=== PATIENT | male | born 1950 | race Caucasian/White ===

== ENCOUNTER → 2017-12-01 16:18 | Outpatient (CLI) | payer MEDICARE, OTHER, SELFPAY ==
--- NOTE | 2017-12-01 | DI.MRI.S_ITS ---
PROCEDURE: MR ANKLE LT WO CON INDICATIONS: STRAIN OF MUSCLE AND TENDON LOWER LEFT LEG TECHNIQUE: Noncontrast sagittal T1 spin echo and T2 fast spin echo with fat saturation, axial proton density fast spin echo and T2 fast spin echo with fat saturation, coronal T1 spin echo and T2 fast spin echo with fat saturation through the ankle/hindfoot. COMPARISON: None. FINDINGS: Image quality: Excellent. Bones and joints: No bone marrow contusions or fractures. No hindfoot coalitions. No osteochondral injuries of the talar dome. No pathologic joint effusions. There is anterior circumferential subcutaneous edema Medial structures: The posterior tibialis, flexor digitorum longus, and flexor hallucis longus tendons are intact. The posterior tibial neurovascular bundle appears normal within the tarsal tunnel, without extrinsic mass effect. The deep layer (anterior and posterior tibiotalar ligaments) and superficial layer (tibionavicular, tibiospring, and tibiocalcaneal ligaments) of the deltoid ligament appear normal. The spring ligament components (superomedial calcaneonavicular, medioplantar oblique calcaneonavicular, and inferoplantar longitudinal ligaments) are intact. Lateral structures: The anterior talofibular, calcaneofibular, and posterior talofibular ligaments appear intact. More superiorly, the anterior and posterior tibiofibular ligaments appear intact, as is the intermalleolar ligament. The tibiofibular syndesmosis is normal in width at 2 mm or less. The peroneus longus and brevis tendons demonstrate normal location and morphology. There is minimal peroneus longus and brevis tenosynovitis of unknown clinical significance. Adjacent bony peroneal tubercle and retrotrochlear prominence are normal in size. The sinus tarsi demonstrates normal fatty signal, without edema, fibrosis, or cyst formation. Visualized sinus tarsi components (cervical ligament, interosseous talocalcaneal ligament, roots of the inferior extensor retinaculum) appear normal. The calcaneonavicular and calcaneocuboid components of the bifurcate ligament appear intact. The dorsal calcaneocuboid ligament appears intact. Anterior structures: The tibialis anterior is markedly thickened and demonstrates intrasubstance signal change in keeping with severe tendinopathy. Possible longitudinal split tear seen on image 26 series 6 near the insertion. This is in the area marked by the fiducial placed on the anterior/dorsal skin surface The extensor hallucis longus, and extensor digitorum longus tendons appear intact. The dorsal talonavicular ligament appears intact. Posterior and plantar structures: Achilles tendon is intact. Medial and lateral bands of the plantar fascia are of normal thickness. IMPRESSION: Severe tibialis anterior tendinopathy and longitudinal split tear. Circumferential anterior subcutaneous soft tissue swelling is probably reactive. Please correlate clinically. Dictated by: Raheem Marie M.D. on 12/01/2017 at 17:07 Approved by: Raheem Marie M.D. on 12/01/2017 at 17:20
== END ==
PROVIDERS: Family Provider Internal Medicine; PCP Internal Medicine; Visit Provider Podiatrist
DX: S96.812A Strain of other specified muscles and tendons at ankle and foot level, left foot, initial encounter (principal)
CPT/HCPCS: 73721

== ENCOUNTER 2018-10-24 16:21 | Emergency (ER) | payer MEDICARE, OTHER, SELFPAY ==
[2018-10-24 16:25] VITALS: BP 170/80; PULSE 64; RESP 19; TEMP 36.4; O2SAT 96
--- NOTE | 2018-10-24 17:25 | DI.RAD.S_ITS ---
PROCEDURE: XR ELBOW LT MIN 3V INDICATIONS: foreign body, possible TECHNIQUE: 3 views of the elbow were acquired. COMPARISON: None. FINDINGS: Bones: No fractures or dislocations. No suspicious bony lesions. Soft tissues: No elbow joint effusion. No suspicious soft tissue calcifications. Within the soft tissues at the radial aspect of the elbow area, without impingement on the adjacent osseous structures, there is a metallic foreign body appears to represent most likely a portion of a metallic staple, which correlates with the clinical history provided to the technologist, from 4 days ago. IMPRESSION: Presumed staple metallic fragment at the radial aspect of the elbow region without osseous injury associated. No effusion suspected. Dictated by: Cesar Dasilva M.D. on 10/24/2018 at 17:59 Approved by: Cesar Dasilva M.D. on 10/24/2018 at 18:01
[2018-10-24] MEDS: DIPHTH,PERTUSS(ACELL),TET VAC 0.5 ML SYRINGE IM (18:27)
[2018-10-24 18:32] VITALS: PULSE 61; RESP 16; O2SAT 99
--- NOTE | 2018-10-26 19:22 | ED.UPPEXIN ---
HPI - Extremity Injury (Upper) General Chief Complaint: Extremity Injury, Upper Stated Complaint: staple in left elbow Time Seen by Provider: 10/24/18 16:58 Source: patient Mode of arrival: ambulatory Limitations: no limitations History of Present Illness HPI narrative: Patient presents emergency department complaining of a wound on the radial aspect of his proximal left forearm, which he believes may be the result of an imbedded carpet stable. Patient states that he was pulling up carpet and jenn, and that he sustained a lot of surface injuries and ?pokes and scratches?. Patient states he felt something stabbed the back of his arm, but did not think too much of it. He states that in the several days since, he has felt as though there is something poking under his skin. Patient has had a wound that is scabbed over, but has been draining a small amount of bloody fluid. Patient denies any redness or streaking. No fevers or chills. No body aches. Patient was not injured in any other way, and has no other complaints at this time. He has full range of motion of his elbow. Related Data Home Medications Medication Instructions Recorded Confirmed carbidopa 25 mg-levodopa 100 mg 1 tab PO TID 10/24/18 10/24/18 tablet Previous Rx's Medication Instructions Recorded aspirin 81 mg PO BID #60 03/26/16 lisinopril 40 mg PO QDAY #90 tab 11/14/17 sertraline 50 mg tablet 50 mg PO QDAY #90 tab 07/30/18 Allergies Allergy/AdvReac Type Severity Reaction Status Date / Time cephalexin Allergy Mild rash, no Unverified 10/24/18 16:06 reaction to IV cefazolin in 2014 valacyclovir Allergy Mild rash Unverified 10/24/18 16:06 Review of Systems Constitutional Denies chills, Denies fever(s), Denies lethargy and Denies weakness Eyes Denies change in vision, Denies eye discharge, Denies irritation and Denies loss of vision ENT Ears, Nose, Mouth, and Throat: Denies change in voice, Denies neck pain and Denies sore throat Cardiovascular Denies chest pain, Denies irregular heart rhythm, Denies lightheadedness, Denies palpitations, Denies dyspnea, Denies dyspnea on exertion and Denies orthopnea Respiratory Denies cough, Denies dyspnea, Denies dyspnea on exertion and Denies wheezing Gastrointestinal Gastrointestinal: Denies abdominal pain, Denies change in bowel habits, Denies diarrhea, Denies nausea and Denies vomiting Genitourinary Denies hematuria, Denies flank pain, Denies urinary incontinence and Denies urinary urgency Musculoskeletal Denies neck pain Integumentary/Breasts Denies pruritus, Denies erythema and Denies rash Comments: Left forearm wound Neurologic Denies confusion, Denies loss of vision and Denies weakness Psychiatric Denies anxiety, Denies confusion, Denies depression, Denies homicidal ideation and Denies suicidal ideation Endocrine Denies palpitations Hematologic/Lymphatic Denies easy bruising Allergic/Immunologic Denies wheezing [facility] History Anxiety (Chronic) Social History Smoking Status: Never smoker Social History Smoking Status: Never smoker Exam Initial Vital Signs Initial Vital Signs: Vital Signs Temperature 97.6 F 10/24/18 16:25 Pulse Rate 64 10/24/18 16:25 Respiratory Rate 19 10/24/18 16:25 Blood Pressure 170/80 H 10/24/18 16:25 Pulse Oximetry 96 10/24/18 16:25 Const General: cooperative and well developed Nutritional Appearance: well nourished Orientation: alert, awake, oriented x3 and not confused [facility] Head: normocephalic and atraumatic Ears: external ears normal Nose: external nose normal and No nasal discharge Face and sinus: face symmetric and No dry mucous membranes Mouth: oral mucosae normal and moist mucous membranes Teeth and gingiva: dentition normal Eyes General: appearance normal, both eyes and all related structures Eyelids: eyelids normal Conjunctivae: conjunctivae normal Sclera: sclerae normal Pupils: PERRL EOM: EOM intact bilaterally Neck Neck: normal visual inspection, trachea midline, No lymphadenopathy, No midline deformity and No JVD Lymphatic: No lymphedema Chest Chest: normal inspection of the chest Resp Effort & Inspection: normal respiratory effort, able to speak in complete sentences, no respiratory distress and no use of accessory muscles Cardio Rate: regular rate Rhythm: regular rhythm Pulses: normal peripheral pulses Back/Spine/Pelvis Back: No CVA tenderness Cervical Spine: cervical ROM normal and No pain with cervical ROM Thoracic/Lumbar Spine: thoracic and lumbar spine normal to inspection Skin General: no rashes or lesions noted, No jaundice and No petechiae Other: Patient has an approximately 1 cm length, linear abrasion on the dorsal aspect of his proximal left forearm, on the radial aspect, approximately 4 cm distal to the elbow. No induration or fluctuance is noted. Minimal, thickened sanguinous fluid is expressible at 1 and the wound, which also coincides with a vague feeling of foreign body beneath the distal end of the wound. No foreign body is noted to be protruding through the skin or the wound. There is no erythema of the skin. No streaking. No swelling. Neuro General: alert, oriented x3, gait normal and no focal motor deficits Speech: speech normal Extrem General: full ROM Other: Patient has full range of motion of his left elbow without pain. Psych Appearance: well kempt Mental Status: mental status grossly normal Attitude: cooperative Thought Content: normal and suicidality Judgment: judgment good Procedures Foreign Body OTHER Time Out Performed: no Site: left Description of foreign body: other (Carpet staple) Sedation/Analgesia: other (2% xylocaine injected locally.) Technique: removal with forceps (Tip of staple was found to be just under the surface. Foreign body removed coincided with x-ray findings.) and incision made to facilitate removal (1 cm incision over the original wound with 1 cm cross incision over area of palpable foreign body.) Confirmed by:: direct visualization Complications: none Post-procedure exam: awake, alert Neurovascular: normal distal pulse, normal capillary fill, distal light touch sensation intact and distal motor function normal Course Course Narrative: Staple was removed from the patient's arm after x-ray series demonstrated its presence, as noted under the procedure section. Patient's tetanus was updated in the emergency department. The procedure was done sterilely, we have discussed the signs of infection that patient should watch for. We have discussed the usual indications for return, as well as home management of the patient's wound. MDM - Extremity Injury (Upper) Medical Records Attestation: I reviewed the patient's medical records. Imaging Data Left elbow x-ray: Radiologist's impression: PROCEDURE: XR ELBOW LT MIN 3V INDICATIONS: foreign body, possible TECHNIQUE: 3 views of the elbow were acquired. COMPARISON: None. FINDINGS: Bones: No fractures or dislocations. No suspicious bony lesions. Soft tissues: No elbow joint effusion. No suspicious soft tissue calcifications. Within the soft tissues at the radial aspect of the elbow area, without impingement on the adjacent osseous structures, there is a metallic foreign body appears to represent most likely a portion of a metallic staple, which correlates with the clinical history provided to the technologist, from 4 days ago. IMPRESSION: Presumed staple metallic fragment at the radial aspect of the elbow region without osseous injury associated. No effusion suspected. Dictated by: Cesar Dasilva M.D. on 10/24/2018 at 17:59 Approved by: Cesar Dasilva M.D. on 10/24/2018 at 18:01 Discharge Plan Departure Patient Disposition: Home Clinical Impression: Foreign body (FB) in soft tissue Discharge Date/Time: 10/24/18 18:30 Interventions: ED Discharge Assessment Last Done: 10/24/18 18:32 Instructions: DI for Removal of Foreign Body From Skin Activity Restrictions/Additional Instructions: The metallic staple has been removed from her forearm. The small incision has been repaired with 2 sutures, which will need to be removed in approximately 5 days. Please keep the wound clean and dry until then, and do not rub, scrub, or immerse the wound until sutures are removed. Your tetanus has been updated today. Prescriptions: No Action aspirin 81 MG tablet,delayed release (DR/EC) 81 mg PO BID Qty: 60 RF: 0 lisinopril 40 mg tablet 40 mg PO QDAY Qty: 90 RF: 3 sertraline 50 mg tablet 50 mg PO QDAY Qty: 90 RF: 3 carbidopa-levodopa 25-100 mg tablet 1 tab PO TID RF: 0 Referrals: Derek Ram MD [Primary Care Provider] -
== END 2018-10-24 18:30 | disposition home or self-care (01) ==
PROVIDERS: Emergency Provider Emergency Medicine; Family Provider Internal Medicine; PCP Internal Medicine
DX: M79.5 Residual foreign body in soft tissue (principal)
CPT/HCPCS: 10120; 73080; 90715; 99282; 99283

== ENCOUNTER → 2019-06-24 10:40 | Outpatient (CLI) | payer MEDICARE, OTHER, SELFPAY ==
[2019-06-24 11:11] LABS: Add Manual Diff / Slide Review NO; Basophils Absolute Auto 100 /uL (0-100); Eosinophils Absolute Auto 200 /uL (0-450); Hematocrit 42.7 % (41-53); Hemoglobin 14.5 g/dL (13.5-17.5); Lymphocytes Absolute Auto 1600 /uL (1100-4500); Lymphocytes Percent Auto 27.9 % (25-40); Mean Corpuscular Hemoglobin 30.2 PG (26-34); Mean Corpuscular Volume 89.1 fL (80-100); Monocytes Absolute Auto 400 /uL (0-900); Monocytes Percent Auto 6.6 % (3-14); Neutrophils Absolute Auto 3400 /uL (1500-7000); Neutrophils Percent Auto 60.5 % (50-75); Platelet Count 134 X10^3/uL (150-400); Red Cell Distribution Width 13.7 % (11.6-14.8); White Blood Cell Count 5.6 X10^3/uL (4.5-11.0)
[2019-06-24 11:40] LABS: Alanine Aminotransferase 7 IU/L (<50); Albumin 4.6 g/dL (3.5-5.0); Albumin Globulin Ratio 1.5 (1.0-2.8); Alkaline Phosphatase 62 U/L (38-126); Aspartate Aminotransferase 23 IU/L (17-59); Bilirubin Total 0.7 mg/dL (0.2-1.3); Blood Urea Nitrogen 20 mg/dL (9-20); Calcium 9.9 mg/dL (8.4-10.2); Carbon Dioxide 28 mmol/L (22-32); Chloride 104 mmol/L (98-107); Cholesterol 193 mg/dL (140-199); Estimated Glomerular Filt Rate > 60.0 mL/min (>60); Glucose 99 mg/dL (80-110); HDL Cholesterol 58 mg/dL (40-60); HEMOLYSIS < 15 (0-50); LDL Cholesterol Calculated 125 mg/dL (<100); Potassium 4.6 mmol/L (3.4-5.1); Sodium 141 mmol/L (137-145); Total Protein 7.6 g/dL (6.3-8.2); Triglycerides 49 mg/dL (35-150)
[2019-06-24 12:10] LABS: Prostate Specific Antigen Scrn 0.808 ng/mL (0.1-4.0)
== END ==
PROVIDERS: Family Provider Internal Medicine; PCP Internal Medicine; Referring Provider Internal Medicine; Visit Provider Internal Medicine
DX: Z12.5 Encounter for screening for malignant neoplasm of prostate (principal); I10 Essential (primary) hypertension; N40.0 Benign prostatic hyperplasia without lower urinary tract symptoms
CPT/HCPCS: 36415; 80053; 80061; 85025; G0103

== ENCOUNTER → 2020-06-11 09:31 | Outpatient (CLI) | payer MEDICARE, OTHER, SELFPAY ==
[2020-06-11 10:35] LABS: BUN Creatinine Ratio 21.8 (6-22); Blood Urea Nitrogen 22 mg/dL (9-20); Calcium 9.2 mg/dL (8.4-10.2); Carbon Dioxide 30 mmol/L (22-32); Chloride 106 mmol/L (98-107); Estimated Glomerular Filt Rate > 60.0 mL/min (>60); Glucose 104 mg/dL (80-110); HEMOLYSIS < 15 (0-50); Potassium 4.4 mmol/L (3.4-5.1); Sodium 140 mmol/L (137-145)
== END ==
PROVIDERS: Family Provider Internal Medicine; PCP Internal Medicine; Referring Provider Specialist; Visit Provider Specialist
DX: N28.9 Disorder of kidney and ureter, unspecified (principal)
CPT/HCPCS: 36415; 80048

== ENCOUNTER → 2020-06-16 10:05 | Outpatient (CLI) | payer MEDICARE, OTHER, SELFPAY ==
--- NOTE | 2020-06-16 10:07 | DI.CT.S_ITS ---
PROCEDURE: CT ABDOMEN PELVIS WO/W CON INDICATIONS: Hematuria TECHNIQUE: Optional 5 mm thick noncontrast images acquired from the diaphragm to the symphysis pubis. After the administration of intravenous contrast, 5 mm thick images acquired from the diaphragm to the symphysis pubis after a 10-minute delay. 2 mm thick coronal and sagittal reformats were then performed of the kidneys and ureters. For radiation dose reduction, the following was used: automated exposure control, adjustment of mA and/or kV according to patient size. COMPARISON: [facility], CT, IVP (ABD & PEL WWO CONTRAST), 02/05/2016, 11:06. FINDINGS: Image quality: Excellent. Lung bases: Lung bases are clear. Heart size is normal. There is a small hiatal hernia. Urinary system: Both kidneys are normal in size, without hydronephrosis or nephrolithiasis on pre-contrast images. No perinephric fat stranding. There is normal bilateral renal enhancement. Renal calyces appear normal in morphology when filled with contrast. Opacified portions of both ureters demonstrate normal caliber. Bladder wall is mild diffusely thickened. There is irregularity in the bladder base. No calcified bladder stones. Other solid organs: Liver is normal in size and enhancement. Gallbladder contain small gallstones. Biliary system is non dilated. There is fatty infiltration of pancreas. Spleen is normal in size and enhancement. No adrenal nodules. Peritoneum and bowel: Bowel loops demonstrate normal wall thickness and caliber. There are colonic diverticula in sigmoid colon. No CT findings to suggest diverticulitis. No free fluid or air. Nodes and vessels: A mildly enlarged left para-aortic lymph node measures 1.2 cm, unchanged since 02/05/2016. No mesenteric adenopathy by size criteria. Aorta and inferior vena cava are normal in size. Abdominal wall: Small fat containing umbilical hernia is noted. Pelvis: No pathologic free pelvic fluid. No inguinal adenopathy. Small fat containing inguinal hernias are noted bilaterally. Bones: No suspicious bony lesions. No vertebral body compression fractures. Severe degenerative disc and facet disease in lumbar spine. Right hip arthroplasty. IMPRESSION: 1. Mild diffuse thickening of urinary bladder, suggesting cystitis. There is irregularity in bladder base. Recommend correlation with findings on cystoscopy. 2. Mild retraperitoneal lymph adenopathy, stable since 02/05/2016. 3. Cholelithiasis. 4. Diverticulosis without acute diverticulitis. 5. Fatty infiltration of pancreas. Please correlate with pancreatic enzymes. Dictated by: Johnna Valentin M.D. on 06/16/2020 at 11:20 Approved by: Johnna Valentin M.D. on 06/16/2020 at 14:50
== END ==
PROVIDERS: Family Provider Internal Medicine; PCP Internal Medicine; Referring Provider Specialist; Visit Provider Specialist
DX: R31.9 Hematuria, unspecified (principal); K80.20 Calculus of gallbladder without cholecystitis without obstruction; K57.90 Diverticulosis of intestine, part unspecified, without perforation or abscess without bleeding; R59.0 Localized enlarged lymph nodes; K42.9 Umbilical hernia without obstruction or gangrene
CPT/HCPCS: 74178; Q9967

== ENCOUNTER → 2020-08-11 13:58 | Outpatient (CLI) | payer MEDICARE, OTHER, SELFPAY ==
[2020-08-11] MEDS: COVID-19 VACC #1, MRNA(MOD) 100 MCG/0.5 ML VIAL IM (14:04)
== END ==
PROVIDERS: Family Provider Internal Medicine; PCP Internal Medicine; Visit Provider Internal Medicine
DX: Z23 Encounter for immunization (principal)
CPT/HCPCS: 0011A; 91301

== ENCOUNTER → 2020-09-09 14:29 | Outpatient (CLI) | payer MEDICARE, OTHER, SELFPAY ==
[2020-09-09] MEDS: COVID-19 VACC #2, MRNA(MOD) 100 MCG/0.5 ML VIAL IM (14:38)
== END ==
PROVIDERS: Family Provider Internal Medicine; PCP Internal Medicine; Visit Provider Internal Medicine
DX: Z23 Encounter for immunization (principal)
CPT/HCPCS: 0012A; 91301

== ENCOUNTER → 2021-01-14 10:00 | Outpatient (CLI) | payer MEDICARE, OTHER, SELFPAY ==
[2021-01-14 10:34] LABS: Add Manual Diff / Slide Review NO; Basophils Absolute Auto 0 /uL (0-100); Basophils Percent Auto 0.7 % (0-2); Eosinophils Absolute Auto 200 /uL (0-450); Eosinophils Percent Auto 2.9 % (2-4); Hematocrit 42.8 % (41-53); Hemoglobin 14.1 g/dL (13.5-17.5); Lymphocytes Absolute Auto 1200 /uL (1100-4500); Mean Corpuscular HGB Conc 32.9 % (30-36); Monocytes Absolute Auto 400 /uL (0-900); Monocytes Percent Auto 6.6 % (3-14); Neutrophils Absolute Auto 3700 /uL (1500-7000); Neutrophils Percent Auto 67.8 % (50-75); Platelet Count 132 X10^3/uL (150-400); Red Cell Distribution Width 14.1 % (11.6-14.8); White Blood Cell Count 5.5 X10^3/uL (4.5-11.0)
[2021-01-14 10:47] LABS: Alanine Aminotransferase 18 IU/L (<50); Albumin 4.3 g/dL (3.5-5.0); Albumin Globulin Ratio 1.3 (1.0-2.8); Alkaline Phosphatase 61 U/L (38-126); Aspartate Aminotransferase 30 IU/L (17-59); Bilirubin Total 0.7 mg/dL (0.2-1.3); Blood Urea Nitrogen 20 mg/dL (9-20); Calcium 9.6 mg/dL (8.4-10.2); Carbon Dioxide 27 mmol/L (22-32); Chloride 105 mmol/L (98-107); Cholesterol 177 mg/dL (140-199); Estimated Glomerular Filt Rate > 60.0 mL/min (>60); Globulin 3.2 g/dL (1.7-4.1); Glucose 109 mg/dL (80-110); HDL Cholesterol 58 mg/dL (40-60); HEMOLYSIS < 15 (0-50); LDL Cholesterol Calculated 104 mg/dL (<100); Potassium 4.4 mmol/L (3.4-5.1); Sodium 139 mmol/L (137-145); Total Protein 7.5 g/dL (6.3-8.2); Triglycerides 76 mg/dL (35-150)
[2021-01-14 11:18] LABS: Prostate Specific Antigen Scrn 0.721 ng/mL (0.1-4.0)
[2021-01-14 11:59] LABS: TSH w/ Reflex to FT4 3.75 uIU/mL (0.47-4.68)
== END ==
PROVIDERS: Family Provider Internal Medicine; PCP Internal Medicine; Referring Provider Internal Medicine; Visit Provider Internal Medicine
DX: D69.6 Thrombocytopenia, unspecified (principal); G20 Parkinson's disease; I10 Essential (primary) hypertension; Z12.5 Encounter for screening for malignant neoplasm of prostate; G25.81 Restless legs syndrome; Z13.220 Encounter for screening for lipoid disorders
CPT/HCPCS: 36415; 80053; 80061; 84443; 85025; G0103

== ENCOUNTER 2021-04-01 16:17 | Observation (INO) | payer MEDICARE, OTHER, SELFPAY ==
[2021-04-01] VITALS (7 sets, daily range): BP systolic 131–200; BP diastolic 59–87; PULSE 62–70; RESP 14–18; TEMP 36.3–36.8; O2SAT 96–99; BMI 31.2
--- NOTE | 2021-04-01 17:11 | DI.RAD.S_ITS ---
PROCEDURE: XR HAND LT MIN 3V INDICATIONS: Lacerations TECHNIQUE: 3 views of the hand(s) acquired. COMPARISON: None. FINDINGS: Bones: Fracture of the distal phalanx of the thumb. Chronic deformity of the ring finger, with severe DIP joint degeneration. Scattered degenerative subchondral sclerosis and spurring. Soft tissues: Associated soft tissue swelling. Laceration of the middle finger also noted. IMPRESSION: Fracture of the distal phalanx of the thumb. Dictated by: Raheem Marie M.D. on 04/01/2021 at 17:53 Approved by: Raheem Marie M.D. on 04/01/2021 at 17:55
--- NOTE | 2021-04-01 17:11 | ED_ITS ---
HPI - Extremity Injury (Upper) <Kwadwo Martinez PA-C - Last Filed: 04/02/21 19:42> General Chief Complaint: Extremity Injury, Upper Stated Complaint: cut left thumb on tablesaw Time Seen by Provider: 04/01/21 16:51 Source: patient Mode of arrival: Ambulatory Limitations: no limitations History of Present Illness HPI narrative: Patient is a 70-year-old male presenting to the emergency depar tment today for an evaluation a left hand injury that occurred 1-1/2 hours prior to arriving to the ED. Patient states that he was making cutting boards using his table saw at home when the injury occurred. He sustained lacerations to his left thumb and left middle fingers. He denies additional lacerations or injuries. Patient denies fever, chills, chest pain, shortness of breath, abdominal pain, nausea, vomiting, diarrhea. No other concerns voiced at this time. Related Data Home Medications Medication Instructions Recorded Confirmed carbidopa 25 mg-levodopa 100 mg 1 tab PO TID 10/24/18 04/02/21 tablet aspirin 81 mg tablet,delayed 81 mg PO DAILY tab 06/10/19 04/02/21 release ropinirole 0.5 mg tablet 1 mg PO TID 05/21/20 04/02/21 Previous Rx's Medication Instructions Recorded lisinopril 40 mg tablet 40 mg PO DAILY #90 tab 12/15/20 sertraline 50 mg tablet 50 mg PO QDAY #90 tab 12/15/20 bacitracin 500 unit/gram topical 1 applic TOPICAL DAILY #30 g 04/02/21 ointment cephalexin 500 mg capsule 500 mg PO QID 7 Days #28 cap 04/02/21 docusate sodium 100 mg capsule 100 mg PO BID PRN #30 cap 04/02/21 oxycodone 5 mg tablet 5 mg PO Q4-6H PRN #20 tab 04/02/21 Allergies Allergy/AdvReac Type Severity Reaction Status Date / Time cephalexin Allergy Mild rash, no Verified 12/15/20 10:21 reaction to IV cefazolin in 2014 valacyclovir Allergy Mild rash Verified 12/15/20 10:21 Review of Systems <Kwadwo Martinez PA-C - Last Filed: 04/02/21 19:42> Constitutional Constitutional: Denies chills, Denies fever(s), Denies frequent falls, Denies lethargy and Denies weakness ENT Ears, Nose, Mouth, and Throat: Denies dizziness Cardiovascular Cardiovascular: Denies chest pain, Denies irregular heart rhythm, Denies lightheadedness, Denies palpitations, Denies dyspnea, Denies dyspnea on exertion and Denies orthopnea Respiratory Respiratory: Denies cough, Denies dyspnea, Denies dyspnea on exertion and Denies wheezing Gastrointestinal Gastrointestinal: Denies abdominal pain, Denies change in bowel habits, Denies diarrhea, Denies nausea and Denies vomiting Musculoskeletal Musculoskeletal: Denies numbness Integumentary/Breasts Skin/Breast: Denies pruritus, Denies erythema, Denies rash and Reports wounds (Lacerations to left thumb and left middle finger) Neurologic Neurologic: Denies behavioral changes, Denies confusion, Denies dizziness, Denies frequent falls, Denies numbness and Denies weakness Psychiatric Psychiatric: Denies behavioral changes and Denies confusion Endocrine Endocrine: Denies palpitations Allergic/Immunologic Allergic/Immunologic: Denies wheezing Patient History <Kwadwo Martinez PA-C - Last Filed: 04/02/21 19:42> Medical History Anxiety (01/02/12) Arthritis BPH w urinary obs/LUTS Essential hypertension (09/25/15) Essential tremor (03/21/14) Hematuria Neurological disease Osteoarthritis of left knee Parkinsons disease Restless leg syndrome Sleep apnea with use of continuous positive airway pressure (CPAP) Thrombocytopenia (02/01/16) Surgical History History of hip replacement History of knee replacement Family History Father Cancer BPH (benign prostatic hyperplasia) Mother Hypertension Social History marital status: number of children: 4 household members: spouse occupational status: previously employed Smoking Status: Never smoker alcohol intake: current caffeine: Yes Smoking Status: Never smoker alcohol intake frequency: a few times a week Substance Use Type: does not use Exam <Kwadwo Martinez PA-C - Last Filed: 04/02/21 19:42> Narrative Exam Narrative: GENERAL: 70 year old patient appears stated age. Well-developed patient, in mild distress. HEAD: Atraumatic. Normocephalic. EYES: Pupils equal round and reactive. Extraocular motions intact. No scleral icterus. No injection or drainage. ENT: Nose without bleeding, purulent drainage. Throat without erythema, tonsillar hypertrophy or exudate. Airway patent. NECK: Trachea midline. Non tender CARDIOVASCULAR: Regular rate and rhythm without murmurs, gallops, or rubs. RESPIRATORY: Clear to auscultation. Breath sounds equal bilaterally. No wheezes, rales, or rhonchi. GASTROINTESTINAL: Abdomen soft, non-tender, nondistended. EXTREMITIES: No edema or joint tenderness. BACK: Nontender without deformity or crepitance. No flank tenderness. NEURO: AOx3. SKIN: No rash or erythema of visible areas. Laceration over the left thumb and left middle finger. Initial Vital Signs Initial Vital Signs: Vital Signs Temperature 97.9 F 04/01/21 16:30 Pulse Rate 70 04/01/21 16:30 Respiratory Rate 18 04/01/21 16:30 Blood Pressure 200/87 H 04/01/21 16:30 Pulse Oximetry 99 04/01/21 16:30 <Ernesto Jewell DO - Last Filed: 04/05/21 03:55> Initial Vital Signs Initial Vital Signs: Vital Signs Temperature 97.9 F 04/01/21 16:30 Pulse Rate 70 04/01/21 16:30 Respiratory Rate 18 04/01/21 16:30 Blood Pressure 200/87 H 04/01/21 16:30 Pulse Oximetry 99 04/01/21 16:30 Course <Kwadwo Martinez PA-C - Last Filed: 04/02/21 19:42> Course Course Narrative: X-ray of left hand ordered. Orders Ordered: Discontinued Medications Acetaminophen (Acetaminophen 325 Mg Tablet) 650 mg PO PACUNOW PRN PRN Reason: Pain, Mild (1-3) Bupivacaine HCl (Bupivacaine 0.25% (Pf) Vial) 30 ml INJ NOW ONE Stop: 04/01/21 22:24 Last Admin: 04/01/21 22:23 Dose: 10 ml Documented by: ELIZABETH Carbidopa/Levodopa (Carbidopa-Levodopa 25/100 Tablet) 1 each PO TID MRAIANO Last Admin: 04/02/21 15:54 Dose: Not Given Documented by: Admin: 04/02/21 09:55 Dose: 1 each Documented by: MALU Cefazolin Sodium (Cefazolin 1 Gm Vial) 1 gm IV NOW ONE Stop: 04/01/21 18:00 Last Admin: 04/01/21 22:04 Dose: 1 gm Documented by: Admin: 04/01/21 18:23 Dose: 1 gm Documented by: BRENT Cefazolin Sodium (Cefazolin 1 Gm Vial) 2 gm IV Q8H [facility] Stop: 04/02/21 13:31 Last Admin: 04/02/21 12:23 Dose: 2 gm Documented by: Admin: 04/02/21 05:49 Dose: 2 gm Documented by: HOMA Diphtheria/Tetanus/Acell Pertussis (Tet,Diph,Pertuss(Acell),Vac/Pf 0.5 Ml Syringe) 0.5 ml IM .ONCE ONE Stop: 04/01/21 17:37 Last Admin: 04/01/21 18:23 Dose: 0.5 ml Documented by: BRENT Docusate Sodium (Docusate 100 Mg Capsule) 100 mg PO BID [facility] Last Admin: 04/02/21 09:57 Dose: Not Given Documented by: Admin: 04/02/21 00:03 Dose: 100 mg Documented by: HOMA Fentanyl (Fentanyl 100 Mcg/2 Ml Inj) 0 mcg IV Q5M PRN PRN Reason: Pain, Moderate (4-6) Hydromorphone HCl (Hydromorphone 0.5 Mg Inj) 0.5 mg IV Q1H PRN PRN Reason: Pain, Severe (7-10) Lactated Ringer's (Lactated Ringers) 1,000 mls @ 125 mls/hr IV CONT [facility] Last Admin: 04/02/21 00:03 Dose: 125 mls/hr Documented by: HOMA Influenza Virus Vaccine (Influenza Hd Vaccine 0.7 Ml Syringe) 0.7 ml IM .ONCE ONE Stop: 04/02/21 09:01 Last Admin: 04/02/21 09:57 Dose: 0.7 ml Documented by: MALU Lisinopril (Lisinopril 20 Mg Tablet) 40 mg PO DAILY [facility] Last Admin: 04/02/21 09:56 Dose: 40 mg Documented by: MALU Naloxone HCl (Naloxone 0.4 Mg/Ml Vial) 0.2 mg IV Q2MIN PRN PRN Reason: Opiate Reversal Ondansetron HCl (Ondansetron 4 Mg/2 Ml Inj) 4 mg IV NOW PRN PRN Reason: Nausea And Vomiting Ondansetron HCl (Ondansetron 4 Mg Odt) 4 mg PO Q4HR PRN PRN Reason: Nausea And Vomiting Oxycodone HCl (Oxycodone Ir 5 Mg Tablet) 5 mg PO Q3HR PRN PRN Reason: Pain, Moderate (4-6) Last Admin: 04/02/21 00:02 Dose: 5 mg Documented by: HOMA Oxycodone/Acetaminophen (Oxycodone/Acetaminophen 5/325 Tablet) 1 tab PO PACUNOW PRN PRN Reason: Mild or Moderate Pain Ropinirole HCl (Ropinirole 0.25 Mg Tablet) 0.5 mg PO TID [facility] Last Admin: 04/02/21 15:54 Dose: Not Given Documented by: Admin: 04/02/21 09:55 Dose: 0.5 mg Documented by: MALU Sertraline HCl (Sertraline 50 Mg Tablet) 50 mg PO DAILY [facility] Last Admin: 04/02/21 09:56 Dose: 50 mg Documented by: MALU Tetanus Immune Globulin (Tetanus Immune Globulin/Pf 250 Unit Syringe) 250 unit IM NOW ONE Stop: 04/01/21 17:31 Last Admin: 04/01/21 17:37 Dose: Not Given Documented by: ANABELLE Consultations Consultation #1: Consulted with Dr. Kumari with scheduled [facility]. Reviewed images of lacerations. Recommends placing the patient in gauze wet-to-dry dressing and to start IV Ancef. His plan is to take the patient to the OR for washout when available this evening. Time: 17:45 Vital Signs Vital signs: Vital Signs - 8 hr 04/01/21 16:30 04/01/21 20:11 Temperature 97.9 F Pulse Rate 70 66 Respiratory Rate 18 Blood Pressure 200/87 H 192/84 H Pulse Oximetry 99 96 <Ernesto Jewell DO - Last Filed: 04/05/21 03:55> Orders Ordered: Discontinued Medications Acetaminophen (Acetaminophen 325 Mg Tablet) 650 mg PO PACUNOW PRN PRN Reason: Pain, Mild (1-3) Bupivacaine HCl (Bupivacaine 0.25% (Pf) Vial) 30 ml INJ NOW ONE Stop: 04/01/21 22:24 Last Admin: 04/01/21 22:23 Dose: 10 ml Documented by: ELIZABETH Carbidopa/Levodopa (Carbidopa-Levodopa 25/100 Tablet) 1 each PO TID [facility] Last Admin: 04/02/21 15:54 Dose: Not Given Documented by: Admin: 04/02/21 09:55 Dose: 1 each Documented by: MALU Cefazolin Sodium (Cefazolin 1 Gm Vial) 1 gm IV NOW ONE Stop: 04/01/21 18:00 Last Admin: 04/01/21 22:04 Dose: 1 gm Documented by: Admin: 04/01/21 18:23 Dose: 1 gm Documented by: BRENT Cefazolin Sodium (Cefazolin 1 Gm Vial) 2 gm IV Q8H [facility] Stop: 04/02/21 13:31 Last Admin: 04/02/21 12:23 Dose: 2 gm Documented by: Admin: 04/02/21 05:49 Dose: 2 gm Documented by: HOMA Diphtheria/Tetanus/Acell Pertussis (Tet,Diph,Pertuss(Acell),Vac/Pf 0.5 Ml Syringe) 0.5 ml IM .ONCE ONE Stop: 04/01/21 17:37 Last Admin: 04/01/21 18:23 Dose: 0.5 ml Documented by: BRENT Docusate Sodium (Docusate 100 Mg Capsule) 100 mg PO BID [facility] Last Admin: 04/02/21 09:57 Dose: Not Given Documented by: Admin: 04/02/21 00:03 Dose: 100 mg Documented by: HOMA Fentanyl (Fentanyl 100 Mcg/2 Ml Inj) 0 mcg IV Q5M PRN PRN Reason: Pain, Moderate (4-6) Hydromorphone HCl (Hydromorphone 0.5 Mg Inj) 0.5 mg IV Q1H PRN PRN Reason: Pain, Severe (7-10) Lactated Ringer's (Lactated Ringers) 1,000 mls @ 125 mls/hr IV CONT [facility] Last Admin: 04/02/21 00:03 Dose: 125 mls/hr Documented by: HOMA Influenza Virus Vaccine (Influenza Hd Vaccine 0.7 Ml Syringe) 0.7 ml IM .ONCE ONE Stop: 04/02/21 09:01 Last Admin: 04/02/21 09:57 Dose: 0.7 ml Documented by: MALU Lisinopril (Lisinopril 20 Mg Tablet) 40 mg PO DAILY [facility] Last Admin: 04/02/21 09:56 Dose: 40 mg Documented by: MALU Naloxone HCl (Naloxone 0.4 Mg/Ml Vial) 0.2 mg IV Q2MIN PRN PRN Reason: Opiate Reversal Ondansetron HCl (Ondansetron 4 Mg/2 Ml Inj) 4 mg IV NOW PRN PRN Reason: Nausea And Vomiting Ondansetron HCl (Ondansetron 4 Mg Odt) 4 mg PO Q4HR PRN PRN Reason: Nausea And Vomiting Oxycodone HCl (Oxycodone Ir 5 Mg Tablet) 5 mg PO Q3HR PRN PRN Reason: Pain, Moderate (4-6) Last Admin: 04/02/21 00:02 Dose: 5 mg Documented by: HOMA Oxycodone/Acetaminophen (Oxycodone/Acetaminophen 5/325 Tablet) 1 tab PO PACUNOW PRN PRN Reason: Mild or Moderate Pain Ropinirole HCl (Ropinirole 0.25 Mg Tablet) 0.5 mg PO TID [facility] Last Admin: 04/02/21 15:54 Dose: Not Given Documented by: Admin: 04/02/21 09:55 Dose: 0.5 mg Documented by: MALU Sertraline HCl (Sertraline 50 Mg Tablet) 50 mg PO DAILY [facility] Last Admin: 04/02/21 09:56 Dose: 50 mg Documented by: MALU Tetanus Immune Globulin (Tetanus Immune Globulin/Pf 250 Unit Syringe) 250 unit IM NOW ONE Stop: 04/01/21 17:31 Last Admin: 04/01/21 17:37 Dose: Not Given Documented by: ANABELLE Vital Signs Vital signs: Vital Signs - 8 hr 04/01/21 16:30 04/01/21 20:11 Temperature 97.9 F Pulse Rate 70 66 Respiratory Rate 18 Blood Pressure 200/87 H 192/84 H Pulse Oximetry 99 96 MDM - Extremity Injury (Upper) <Kwadwo Martinez PA-C - Last Filed: 04/02/21 19:42> Lab Data Labs: Lab Results 04/01/21 Range/Units 18:15 SARS-CoV-2 (PCR) Negative (Negative) Imaging Data Extremity x-ray #1: Radiologist's Impression: PROCEDURE:? XR HAND LT MIN 3V ? INDICATIONS:? Lacerations ? TECHNIQUE:? 3 views of the hand(s) acquired.? ? COMPARISON:? None. ? FINDINGS:? ? Bones:? Fracture of the distal phalanx of the thumb.? Chronic deformity of the ring finger, with severe DIP joint degeneration. Scattered degenerative subchondral sclerosis and spurring.? ? Soft tissues:? Associated soft tissue swelling.? Laceration of the middle finger also noted. ? ? IMPRESSION:? Fracture of the distal phalanx of the thumb. ? Dictated by: Raheem Marie M.D. on 04/01/2021 at 17:53 ? ? Approved by: Raheem Marie M.D. on 04/01/2021 at 17:55 ? MDM Narrative Medical decision making narrative: Patient is a 70-year-old male presenting to the emergency department today for an evaluation a left hand injury that occurred 1-1/2 hours prior to arriving to the ED. To consider laceration versus fracture versus dislocation. X-ray shows fracture of the distal phalanx of the left thumb. Dr. Kumari in orthopedic surgery reviewed images of the lacerations. He feels it is best to have the patient go to the OR for a washout of the wounds to the patient's left thumb and left middle finger as too much tissue had been removed due to the injury to suture together. Patient was started on 1 g of IV Ancef in the emergency room. Additionally, the left thumb and left middle finger replaced white dry dressings. <Ernesto Jewell DO - Last Filed: 04/05/21 03:55> Lab Data Labs: Lab Results 04/01/21 Range/Units 18:15 SARS-CoV-2 (PCR) Negative (Negative) Discharge Plan Departure Patient Disposition: Admitted to Surgery Clinical Impression: Laceration of left thumb Qualifiers: Encounter type: initial encounter Damage to nail status: unspecified Foreign body presence: unspecified Qualified Code(s): S61.012A - Laceration without foreign body of left thumb without damage to nail, initial encounter Laceration of left middle finger Qualifiers: Encounter type: initial encounter Damage to nail status: unspecified Foreign body presence: unspecified Qualified Code(s): S61.213A - Laceration without foreign body of left middle finger without damage to nail, initial encounter Admit Date/Time: 04/01/21 22:29 Admit Provider: Indu Kumari <Ernesto Jewell DO - Last Filed: 04/05/21 03:55> Cosign ED Attending Cosignature Attestation: I was immediately available in the department for consultation. This documentation has been reviewed and I agree with assessment and plan. Supervised by Ernesto Jewell DO
[2021-04-01] MEDS: TET,DIPH,PERTUSS(ACELL),VAC/PF 0.5 ML SYRINGE IM (18:23)
[2021-04-01] MEDS: CEFAZOLIN 1 GM VIAL IV ×2 (18:23→22:04)
[2021-04-01 18:45] LABS: COVID19 -Nasal RAPID Negative (Negative)
--- NOTE | 2021-04-01 21:49 | P.HP_ITS ---
History of Present Illness History of Present Illness Date Patient Seen: 04/01/21 Time Patient Seen: 21:49 Date of Onset of Symptoms: 04/01/21 Chief complaint: cut left thumb on tablesaw Narrative: Mr. Kinsey is a 70 yo M with circular saw injury to his left hand. He is right hand dominant. He had previous saw injury to his left hand in the past with surgical treatment for at least the left ring finger. It is not clear what limitations he had to his thumb or long finger. Patient was seen in the ED and ortho service was consulted for additional treatment recommendations. Patient History Medical History Anxiety (01/02/12) Arthritis BPH w urinary obs/LUTS Essential hypertension (09/25/15) Essential tremor (03/21/14) Hematuria Neurological disease Osteoarthritis of left knee Parkinsons disease Restless leg syndrome Sleep apnea with use of continuous positive airway pressure (CPAP) Thrombocytopenia (02/01/16) Surgical History History of hip replacement History of knee replacement Family & Social History Family History Father Cancer BPH (benign prostatic hyperplasia) Mother Hypertension Social History: household members spouse Safety & Behavioral: Feels Safe in Current Yes Environment Been Physically Hurt or No Threatened By a Person Tobacco & Substance use: Smoking Status Never smoker alcohol intake current alcohol intake frequency a few times a week Substance Use Type does not use Meds Home Medications and Allergies Home Medications Medication Instructions Recorded Confirmed Type carbidopa 25 mg-levodopa 100 mg 1 tab PO TID 10/24/18 12/15/20 History tablet aspirin 81 mg tablet,delayed 81 mg PO DAILY tab 06/10/19 12/15/20 History release ropinirole 0.5 mg tablet 0.5 mg PO TID 05/21/20 12/15/20 History lisinopril 40 mg tablet 40 mg PO DAILY #90 tab 12/15/20 12/15/20 Rx sertraline 50 mg tablet 50 mg PO QDAY #90 tab 12/15/20 12/15/20 Rx Allergies Allergy/AdvReac Type Severity Reaction Status Date / Time cephalexin Allergy Mild rash, no Verified 12/15/20 10:21 reaction to IV cefazolin in 2014 valacyclovir Allergy Mild rash Verified 12/15/20 10:21 Review of Systems Review of Systems ROS: Yes All systems reviewed with the patient and are negative except as otherwise documented Exam Vital Signs (past 8 hours): - 04/01/21 16:30 04/01/21 20:11 04/01/21 21:28 Temperature 97.9 F 97.3 F L Pulse Rate 70 66 62 Respiratory Rate 18 16 Blood Pressure 200/87 H 192/84 H 152/74 H Pulse Oximetry 99 96 98 Oxygen Delivery Method Room Air Extrem Other: left hand with tip of thumb laceration with no exposed bone or tendon. Tip is well perfused. Left long finger with significant soft tissue/skin loss over the palmar ulnar aspect of the finger. Possible exposed tendon/tendon sheath, grossly intact sensibility but difficult to assess with possible prior saw injury to the finger. The exam is limited by pain and extensive soft tissue injury and lack of appr opriate lighting in the preop area. Objective Labs Labs: Laboratory Results - last 24 hr 04/01/21 18:15 SARS-CoV-2 (PCR) Negative Assessment & Plan Assessment & Plan narrative: Extensive soft tissue injury/loss due to saw injury to left thumb and long finger. There is extensive palmar skin loss to the long finger. I discussed plan for I&D and trying to give his finger as much soft tissue coverage as possible. I discussed the possible need for future surgeries and consultation with other specialists such as hand surgeon and/or plastic surgeon due to skin loss. I discussed the possibility of needing to perform future amputation if adequate coverage cannot be applied due to tissue loss. Patient understands. Informed consent was obtained and placed in the chart. Time Spent With Patient Critical Care time: I spent a total of [] minutes of critical care time on this patient's care today; this time is exclusive of procedural time.
--- NOTE | 2021-04-01 22:17 | SUR.OPER ---
Supine on padded OR bed, head on pillow,right arm secured on padded arm board at <90 degrees abduction, left arm prepped and draped in field on hand table, legs uncrossed, safety belt at thigh, tape over blanket over lower legs.
[2021-04-01] MEDS: BUPIVACAINE 0.25% (PF) VIAL 30 ML INJ (22:23)
--- NOTE | 2021-04-01 22:55 | P.OP_ITS ---
Operative Date/Time/Diagnoses Time of procedure: 22:00 Pre-op diagnosis: 1. left hand thumb and ring finger laceration with skin, muscle, and open joint capsule injury Post-op diagnosis: same Procedure & Clinicians Procedure: 1. Left thumb and long finger irrigation and debridment and partial wound closure 2. Left thumb interphalangeal joint debridement and closure of joint capsule 3. Debridement of skin, muscle and bone Same procedure as scheduled: Yes Indications: Mr. Santos had a saw injury to his left thumb and long finger. There is significant soft tissue loss with possible bone/joint involvement. After informed consent was obtain, patient was taken to the OR for emergent I&D surgery. Click Yes if Unassisted: Yes Anesthesia Type: General Operative Notes Closure Type: primary Specimen(s): none sent Estimated Blood Loss (mL): 1 Blood products transfused: none Procedure in detail: After informed consent was obtained and placed in the chart, patient was taken to the operative room placed in the supine position on the operating table. General anesthesia was administered. Time-out was performed at this time. Patient's left arm was prepped and draped in a sterile fashion from the finger all the way to the tourniquet was which was placed in on his left upper arm. Both fingers wounds were inspected. The laceration to the left thumb was deeper involving the interphalangeal joint. Debridement of skin muscle and bone was performed by removing small fragments of bone from the joint and irrigating the wound using sterile normal saline until healthy-appearing tissue was visualized and necrotic appearing skin and muscle was excised from the wound. Attention was then turned to the left long finger. The laceration was also insp ected. It was identified the laceration was down to the level of the flexor tendon but not breaching the flexor tendon. The wound also was irrigated copiously with sterile normal saline. Combination of 3-year-old nylon and Vicryl suture was used to close the deeper layer of soft tissue to cover patient's flexor tendon sheath and nylon was used to loosely approximate the skin edges. When suturing was completed, there was no exposed tendon sheath joint capsule or bone. Due to the significant amount of soft tissue loss over the palmar aspect of his left thumb as well as the palmar aspect of the left long finger patient will need additional wound care to allow healing by secondary intention. The loss of soft tissues are mostly epidermis with small amount of dermal tissue with no exposed bone joint capsule tendon or tendon sheath. Patient's left long finger is left in the slacks slight flexed position in order to minimize tension to the repair. Xeroform was used to cover the exposed soft tissue over patient's thumb and long finger. Gauze and a bulky dressing was applied to patient's left hand. Tourniquet was never inflated during the procedure since there was no active bleeding during the procedure. Patient will be admitted to the inpatient hospital for pain control and IV antibiotics. Digital block was performed to both the left thumb and left long finger using 0.25% Marcaine without epinephrine. Patient tolerated the procedure well and was woken up from anesthesia after the hand was dressed. Patient was transferred to recovery room stable condition. Complications: none Post-operative Condition: stable Disposition: PACU Plan for aftercare: Admit to inpatient hospital for pain control and IV antibiotics.
[2021-04-02] MEDS: OXYCODONE IR 5 MG TABLET PO (00:02)
[2021-04-02] MEDS: LACTATED RINGERS 1,000 ML 125 ML IV (00:03)
[2021-04-02] MEDS: DOCUSATE 100 MG CAPSULE PO (00:03)
[2021-04-02 00:20] VITALS: BP 170/77; PULSE 67; RESP 18; TEMP 36.7; O2SAT 95
[2021-04-02 01:20] VITALS: BP 156/75; PULSE 65; RESP 18; TEMP 36.7; O2SAT 95
[2021-04-02 02:20] VITALS: BP 132/61; PULSE 60; RESP 16; TEMP 36.8; O2SAT 95
[2021-04-02] MEDS: CEFAZOLIN 1 GM VIAL 2 GM IV ×2 (05:49→12:23)
[2021-04-02 06:00] VITALS: BP 149/71; PULSE 60; RESP 18; TEMP 36.7; O2SAT 94
[2021-04-02 08:00] VITALS: BP 183/83; PULSE 65; RESP 17; TEMP 36.6; O2SAT 95
--- NOTE | 2021-04-02 09:00 | PT.IIE ---
Surgery Performed Operation Date: 04/01/21 22:00 Actual Procedures p Irrigation and Debridement left hand skin, tendon, muscle, and bone(Left) - Indu Kumari MD Medical History (Last Reviewed 04/02/21 @ 13:57 by Jenise Kan PA-C) Anxiety (01/02/12) Arthritis BPH w urinary obs/LUTS Essential hypertension (09/25/15) Essential tremor (03/21/14) Hematuria Neurological disease Osteoarthritis of left knee Parkinsons disease Restless leg syndrome Sleep apnea with use of continuous positive airway pressure (CPAP) Thrombocytopenia (02/01/16) Physical Therapy Inpatient Evaluation/Re-Eval M1 PT/OT-IP Prior Functional Status Start: 04/02/21 13:58 Freq: NEEDED Status: Active Protocol: Document 04/02/21 09:00 AB (Rec: 04/02/21 14:16 AB [id number]) Medical Review Prior Functional Status Medical History Reviewed Yes Communication able to make needs known Mobility and Gait pt stated that he is independent with all mobilities and ambulation without AD Social History Household Members spouse Living Arrangements House Number of Floors (Floors) One Floor Number of Stairs To Enter/Railing? no steps to enter Home Environment High Toilet,Walk in Shower Home Equipment Shower Seat with Backrest M2 PT-IP Current Condition Start: 04/02/21 13:58 Freq: NEEDED Status: Active Protocol: Document 04/02/21 09:00 AB (Rec: 04/02/21 14:16 AB [id number]) Physical Therapy Current Condition Current Condition Evaluation Date 04/02/21 Treatment Diagnosis L thumb, middle finger laceration s/p I&D; difficulty in walking Onset Date 04/01/21 M3 PT-IP Subjective Start: 04/02/21 13:58 Freq: NEEDED Status: Active Protocol: Document 04/02/21 09:00 AB (Rec: 04/02/21 14:16 AB [email or web address]) Subjective Physical Therapy Visit Type Type Initial Evaluation Visit Start Time 09:00 Visit Stop Time 09:40 Total Visit Minutes 40 Number of REMOTE BROADCAST TECHNICIAN Visits 0 Physical Therapy Visit Comments Patient Comments agreeable to do PT Therapy Pain Assessment Pain Present Pain Present Denied Pain M4 PT-IP Mobility and Gait Start: 04/02/21 13:58 Freq: NEEDED Status: Active Protocol: Document 04/02/21 09:00 AB (Rec: 04/02/21 14:16 AB [id number]) PT-Bed Mobility Assessment Supine to Sit Supine to Sit Minimal Assistance,1 Person Assistance PT-Transfer Assessment Sit to and From Stand Sit to and from Stand Standby Assistance Equipment Transfer Assistive Device Gait Belt Orthotic/Prosthetic Devices or Brace: No Transfers Transfer Destination Chair,Toilet Transfer Technique ambulated Transfer Ability Level of Assist Standby Assistance,Contact Guard Assistance Comments Mobility Comments pt completed supine to sit min A and cues. pt tends to push with his L hand to get up. educated on L hand precautions . pt was able to sit on EOB SBA. (+) R UE/thumb pill rolling and pt stated that he has PD. completed sit to stand SBA to CGA and ambulated . presents with waddling gait with increase R sided trunk lean and with increase time needed to get body back to center. also has slight trunk flexion in standing. pt ambulated to the toilet and was able to maintain standing CGA while using the toilet. ambulated without AD sBA to CGA towards the sink and was able to maintain standing SBA while completing handwashing. educated pt on upright posture and COG. pt ambulated more in room ~ 50 ft SBA to CGA. pt agreed to sit on chair. positioned pt on chair . call light and table placed within reach. Gait Assessment Gait Gait Assistance Required: Standby Assistance,Contact Guard Assist Distance (Feet) 50 Able to Maintain Weight Bearing Status Yes During Gait Assistive Devices Assistive Device None,Gait Belt Orthotic/Prosthetic Devices or Brace: No Gait Deviations General Gait Pattern Antalgic,Decreased Stride Length,Decreased Feet Clearance,Flexed Trunk,Lateral Trunk Lean Factors Limiting Gait Function Factors Limiting Gait Function Decreased Activity Tolerance, Limited Range of Motion,Poor Balance,Poor Safety Awareness Comments Gait Comments pls refer to mobility section for details PT-Balance Assessment Sitting Balance and Reactions Static Sitting Balance Ability Good Dynamic Sitting Balance Ability Good Standing Balance and Reactions Static Standing Balance Ability Good Dynamic Standing Balance Ability Fair Device Used FWW M5 PT-IP Objective Assessments Start: 04/02/21 13:58 Freq: NEEDED Status: Active Protocol: Document 04/02/21 09:00 AB (Rec: 04/02/21 14:16 AB [email or web address]) Orientation Orientation/Cognition Level of Alertness Alert Orientation Name,Place,Situation Language Function Ability No Deficits Noted Safety Awareness Decreased Safety Awareness Memory Description No Deficits Noted Gross Range of Motion Lower Extremity ROM Assessment Within Functional Limits Strength Lower Extremity Strength Hip 4/5 Knee 4/5 Muscle Tone Comments Muscle Tone Comments (+) RUE tremor/thumb pill rolling M6 PT-IP Treatment Start: 04/02/21 13:58 Freq: NEEDED Status: Active Protocol: Document 04/02/21 09:00 AB (Rec: 04/02/21 14:16 AB [id number]) Physical Therapy Treatment Education Education Provided Precautions,Safety M7 PT-IP Assessment and Plan Start: 04/02/21 13:58 Freq: NEEDED Status: Active Protocol: Document 04/02/21 09:00 AB (Rec: 04/02/21 14:16 AB [id number]) PT Summary Assessment and Plan Potential Rehabilitation Potential Good Status of Condition at Evaluation Stable Summary Impairments Pain,ROM,Strength,Balance, Coordination,Sensation,Tone, Cognition,Bed Mobility, Transfers,Gait,Activity Tolerance Assessment Summary pt requiring SBA to CGA with mobility and will have his spouse to assist him at home. Pt stated that he has been going to outpt PT for his balance due to PD. will may go home with assistance and outpt PT. Goals Bed Mobility Goal Independent Transfer Goal Independent Gait Goal Independent Gait Distance 200 Days to Meet Goals 3 Frequency of Treatment Frequency Of Treatment Once a Day Treatment Plan Physical Therapy Treatment Plan Bed Mobility Training,Transfer Training,Gait Training, Therapeutic Exercise,Balance Retraining,Post Op Education, Discharge Planning,Hot or Cold Pack,Neuromuscular Re-ed, Coordination Retraining,Manual Therapy Weight Bearing Status Weight Bearing Status Non-Weight Bearing Allowed Weight Bearing Amount (enter % NWB L hand or #) (%) Recommendations To Nursing Amount of Assist Needed 1 Person Assist Discharge Recommendations PT Discharge Recommendations Home with Assistance, Outpatient PT Transportation Needs at Discharge Private Vehicle
[2021-04-02] MEDS: ROPINIROLE 0.25 MG TABLET 0.5 MG PO (09:55)
[2021-04-02] MEDS: CARBIDOPA-LEVODOPA 25/100 TABLET 1 EACH PO (09:55)
[2021-04-02] MEDS: SERTRALINE 50 MG TABLET PO (09:56)
[2021-04-02] MEDS: lisinopriL 20 MG TABLET 40 MG PO (09:56)
[2021-04-02] MEDS: INFLUENZA HD VACCINE 0.7 ML SYRINGE IM (09:57)
--- NOTE | 2021-04-02 11:14 | CM.DANOTE ---
DCP: Case received, EMR reviewed and met with patient. Introduced self and role. Was able to obtain information regarding patient's baseline activity status prior to hospitalization. DCP assessment completed with information currently available. Patient is a 70 year old male who admitted last evening to the care of the hospitalist team. PCP: Dr. Ram. Payer: confirmed: Medicare/[facility]. Patient came to the hospital via private vehicle secondary to a laceration that patient sustained to his left hand. Patient had been using a table saw cutting some boards, and inherited a laceration to his left thumb. Patient had an I&D done yesterday by surgery. Patient does have history of Parkinson's as well. Met with patient in his room. He is alert and oriented, independent at his baseline. He confirmed that he resides in [place] with his spouse, Monica. Patient indicated, this is not the first time he has done this. He has his left hand bandaged at this time, and had been on IV ABO. P: Patient is supposed to discharge home today. He will be working with P.T today before discharge. Lorena Ortiz RN/University Relations Vice President Discharge Planning/Care Management CM Discharge Assessment Start: 04/02/21 11:12 Freq: Status: Active Protocol: Document 04/02/21 11:13 (Rec: 04/02/21 11:13 [id number]) Discharge Planning Assessment Assigned Ophthalmic Tech Lorena Ortiz RN/University Relations Vice President Advance Directives? No History Provided By Patient,Medical Record Prior Living Arrangements House Household Members spouse Type of transporation used prior to Drives own vehicle admit Independent with ADL's Yes Is patient alert and oriented? Yes Caregiver for Another No Barriers to Discharge No Discharge Plan Home Transportation Arrangement Spouse Referrals Initiated None needed Whiteboard Updated in Patient Room with Yes name and ext. # of Ophthalmic Tech Next Review Type Continued Stay Review
--- NOTE | 2021-04-02 13:54 | PM.DS.1 ---
History of Present Illness History of Present Illness Date Patient Seen: 04/02/21 Time Patient Seen: 13:55 Chief complaint: Left thumb and ring finger pain d/t laceration Narrative: The patient is complaining of [id number] left thumb and ring finger pain. He is status post I&D with Dr. Kumari. He has been on IV antibiotics and will be transitioned to oral antibiotics. He denies any new numbness or tingling. No fevers, chills, night sweats. Discharge Providers Provider Date of admission: 04/01/21 22:29 Discharge Date: 04/02/21 Primary care physician: Derek Ram MD Consults: 04/01/21 23:23 Consult to Discharge Planning Routine Comment: Consult to Physical Therapy Evaluate & Treat Comment: Physician Instructions: Evaluate and Treat Discharge provider: Jenise Kan PA-C Summary Hospital Course Discharge Diagnosis: 1. left hand thumb and ring finger laceration with skin, muscle, and open joint capsule injury Hospital Course: Time of procedure: 22:00 Procedure & Clinicians Procedure: 1. Left thumb and long finger irrigation and debridment and partial wound closure 2. Left thumb interphalangeal joint debridement and closure of joint capsule 3. Debridement of skin, muscle and bone Same procedure as scheduled: Yes Indications: Mr. Santos had a saw injury to his left thumb and long finger. There is significant soft tissue loss with possible bone/joint involvement. After informed consent was obtain, patient was taken to the OR for emergent I&D surgery. Click Yes if Unassisted: Yes Anesthesia Type: General Operative Notes Closure Type: primary Specimen(s): none sent Estimated Blood Loss (mL): 1 Blood products transfused: none Status at Discharge Cognitive/behavioral status at discharge: oriented Functional status at discharge: independent ambulation Overall status at discharge: patient is progressing back to baseline Exam Vital Signs (past 8 hours): - 04/02/21 06:00 04/02/21 08:00 Temperature 98.1 F 98 F Pulse Rate 60 65 Respiratory Rate 18 17 Blood Pressure 149/71 H 183/83 H Pulse Oximetry 94 95 Oxygen Delivery Method Room Air Oxygen Flow Rate 0 Narrative Exam Narrative: Pleasant 70-year-old male, resting comfortably in his chair, no acute distress. is at bedside. Dressing demonstrates serous bloody drainage on his thumb. Ring finger dressing is clean, dry, intact. Patient is able to wiggle his fingers. Objective Labs Labs: Laboratory Results - last 24 hr 04/01/21 18:15 SARS-CoV-2 (PCR) Negative PFSH Medical History Anxiety (01/02/12) Arthritis BPH w urinary obs/LUTS Essential hypertension (09/25/15) Essential tremor (03/21/14) Hematuria Neurological disease Osteoarthritis of left knee Parkinsons disease Restless leg syndrome Sleep apnea with use of continuous positive airway pressure (CPAP) Thrombocytopenia (02/01/16) Surgical History History of hip replacement History of knee replacement Family History Father Cancer BPH (benign prostatic hyperplasia) Mother Hypertension Social History marital status: number of children: 4 household members: spouse occupational status: previously employed Smoking Status: Never smoker alcohol intake: current caffeine: Yes Discharge Assessment & Plan Assessment and Plan Assessment: Stable status post left thumb and ring finger I and D, and due to laceration from table saw Plan of Treatment: - begin daily dressing changes tomorrow, as detailed in discharge summary. -DC home today -bacitracin daily as well as Keflex q.i.d. -follow-up with Dr. Kumari on Monday for wound check. Patient was educated informed about signs and symptoms of infection and bleeding as well as action plans with these. Discharge Plan Discharge Plan Patient Disposition: Home Discharge orders & Medications Prescriptions: New docusate sodium 100 mg Capsule 100 mg PO BID PRN (Reason: Constipation from narcotic pain meds) Qty: 30 RF: 0 oxycodone 5 mg Tablet 5 mg PO Q4-6H PRN (Reason: Pain, Moderate (4-6)) Qty: 20 RF: 0 cephalexin 500 mg capsule 500 mg PO QID 7 Days Qty: 28 RF: 0 bacitracin 500 unit/gram ointment 1 applic topical DAILY Qty: 30 RF: 0 Continued ropinirole 0.5 mg tablet 1 mg PO TID RF: 0 carbidopa-levodopa 25-100 mg tablet 1 tab PO TID RF: 0 aspirin 81 mg tablet,delayed release (DR/EC) 81 mg PO DAILY RF: 0 sertraline 50 mg tablet 50 mg PO QDAY Qty: 90 RF: 3 lisinopril 40 mg tablet 40 mg PO DAILY Qty: 90 RF: 3 Follow up/Referrals: Indu Kumari MD [Physician] - As soon as possible (Call for an appointment on Monday) Derek Ram MD [Primary Care Provider] - Diet/Activity/Treatments Diet: Diet as Tolerated and Regular Activity: Elevate hand above the heart if significant swelling/bleeding Cold/Heat Therapy: Use ice as needed for pain/swelling Skin/Wound/Dressing Care Dressing: -keep dressing in place until 04/03 -daily shower. Gently wash lacerations with dial soap and water. Pat dry with a clean towel. -use bacitracin ointment daily. Use gauze as needed, if there is drainage. Use Coban on top. Keep finger in slight flexion, for comfort. Other wound treatment: -Keflex 500 mg every 6 hours x7 days to prevent infection. It is very important that you complete all your tablets. Visit Report/Discharge Packet Instructions: DI for Hand Injury, DI for Incision and Drainage Discharge Data Primary Care Provider: Derek Ram Attending Provider: Indu Kumari
--- NOTE | 2021-04-02 16:36 | PC.NURSE ---
Discharge: Pt and spouse are voicing several concerns about pt's discharge. Dr. Kumari notified x2. He came and saw pt and spouse, he spent a long time talking with both of them. Spouse feels more comfortable now that she can care for pt and do his dressing change. Given some supplies until they can purchase there own. Reviewed d/c packet and medications. Went over wound care. Questions answered. Pt dc home via auto with spouse.
== END 2021-04-02 16:00 | disposition home or self-care (01) ==
LOC: ED 20:26 → AC 04-02 08:53
PROVIDERS: Admitting Provider Orthopaedic Surgery Orthopaedic Surgery of the Spine; Emergency Provider Physician Assistant; Family Provider Internal Medicine; PCP Internal Medicine; Referring Provider Physician Assistant; Visit Provider Orthopaedic Surgery Orthopaedic Surgery of the Spine
PROC: (CPT 13132; principal; 2021-04-01 22:00)
DX: S61.012A Laceration without foreign body of left thumb without damage to nail, initial encounter (principal); S61.215A Laceration without foreign body of left ring finger without damage to nail, initial encounter; W31.2XXA Contact with powered woodworking and forming machines, initial encounter; Y93.H3 Activity, building and construction; Y92.009 Unspecified place in unspecified non-institutional (private) residence as the place of occurrence of the external cause; G47.33 Obstructive sleep apnea (adult) (pediatric); I10 Essential (primary) hypertension; G20 Parkinson's disease; Z20.822 Contact with and (suspected) exposure to COVID-19; Z23 Encounter for immunization
CPT/HCPCS: 13132; 13133; 73130; 87635; 90471; 90662; 96374; 97161; 97530; 99283; 99284; C9803; G0378; 90715; J0690; J2405; J2704; J3010

== ENCOUNTER → 2021-12-27 17:19 | Outpatient (CLI) | payer MEDICARE, OTHER, SELFPAY ==
[2021-04-01 23:29] VITALS: BMI 31.2
[2021-12-27 18:11] LABS: Add Manual Diff / Slide Review NO; Basophils Absolute Auto 0 /uL (0-100); Basophils Percent Auto 0.6 % (0-2); Eosinophils Absolute Auto 200 /uL (0-450); Eosinophils Percent Auto 2.9 % (2-4); Hematocrit 38.7 % (41-53); Hemoglobin 13.1 g/dL (13.5-17.5); Lymphocytes Absolute Auto 1200 /uL (1100-4500); Lymphocytes Percent Auto 21.9 % (25-40); Mean Corpuscular HGB Conc 33.8 % (30-36); Mean Corpuscular Hemoglobin 30.5 PG (26-34); Mean Corpuscular Volume 90.4 fL (80-100); Monocytes Absolute Auto 400 /uL (0-900); Monocytes Percent Auto 7.7 % (3-14); Neutrophils Absolute Auto 3600 /uL (1500-7000); Neutrophils Percent Auto 66.9 % (50-75); Platelet Count 117 X10^3/uL (150-400); Red Blood Cell Count 4.28 X10^6/uL (4.5-5.9); Red Cell Distribution Width 14.1 % (11.6-14.8); White Blood Cell Count 5.3 X10^3/uL (4.5-11.0)
[2021-12-27 18:17] LABS: Alanine Aminotransferase 5 IU/L (<50); Albumin 4.1 g/dL (3.5-5.0); Albumin Globulin Ratio 1.4 (1.0-2.8); Alkaline Phosphatase 53 U/L (38-126); Aspartate Aminotransferase 21 IU/L (17-59); BUN Creatinine Ratio 15.1 (6-22); Bilirubin Total 0.5 mg/dL (0.2-1.3); Blood Urea Nitrogen 18 mg/dL (9-20); C-Reactive Protein Quant < 0.5 mg/dL (<1.0); Calcium 9.2 mg/dL (8.4-10.2); Carbon Dioxide 27 mmol/L (22-32); Chloride 107 mmol/L (98-107); Estimated Glomerular Filt Rate > 60 mL/min (>60); Glucose 107 mg/dL (80-110); HEMOLYSIS < 15 (0-50); Potassium 4.1 mmol/L (3.4-5.1); Sodium 141 mmol/L (137-145); Total Protein 7.1 g/dL (6.3-8.2)
[2021-12-27 18:31] LABS: Free T4, Direct Thyroxine 0.98 ng/dL (0.78-2.19)
[2021-12-27 18:45] LABS: Thyroid Stimulating Hormone 2.74 uIU/mL (0.47-4.68)
[2021-12-27 18:51] LABS: Erythrocyte Sedimentation Rate 10 MM/HR (0-15)
[2022-01-03 14:36] LABS: Percent Free Testosterone 1.41 % (1.50-4.20)
== END ==
PROVIDERS: Family Provider Internal Medicine; PCP Internal Medicine; Referring Provider Internal Medicine; Visit Provider Internal Medicine
DX: G20 Parkinson's disease (principal); I10 Essential (primary) hypertension; N13.8 Other obstructive and reflux uropathy; N40.1 Benign prostatic hyperplasia with lower urinary tract symptoms; R63.4 Abnormal weight loss; N52.9 Male erectile dysfunction, unspecified
CPT/HCPCS: 36415; 80053; 84402; 84403; 84439; 84443; 85025; 85651; 86140

== ENCOUNTER 2022-03-11 11:35 | Emergency (ER) | payer MEDICARE, OTHER, SELFPAY ==
[2021-04-01 23:29] VITALS: BMI 31.2
[2022-03-11 12:02] VITALS: BP 109/51; PULSE 68; RESP 18; TEMP 36.1; O2SAT 97; BMI 28.1
--- NOTE | 2022-03-11 12:05 | DI.CT.S_ITS ---
PROCEDURE: CT HEAD/BRAIN WO CON INDICATIONS: hit head, lightheaded TECHNIQUE: Noncontrast 4.5 mm thick angled axial sections acquired from the foramen magnum to the vertex, with coronal and sagittal reformats. For radiation dose reduction, the following was used: automated exposure control, adjustment of mA and/or kV according to patient size. COMPARISON: None. FINDINGS: Image quality: Excellent. CSF spaces: Basal cisterns are patent. No extra-axial fluid collections. The ventricles are symmetric in size and shape. Brain: No intracranial bleeds or masses. There is cerebral volume loss for age, with resultant ventricular and sulcal prominence. There are periventricular and deep white matter chronic small vessel ischemic changes. There is intracranial internal carotid artery atherosclerosis. Skull and face: Calvarium and visualized facial bones appear intact, without suspicious lesions. Sinuses: Visualized sinuses and mastoids are clear. IMPRESSION: 1. No acute intracranial findings. 2. Mild findings likely associated with chronic microvascular ischemia. Dictated by: Hien Davis M.D. on 03/11/2022 at 12:45 Approved by: Hien Davis M.D. on 03/11/2022 at 12:46
--- NOTE | 2022-03-11 12:06 | DI.CT.S_ITS ---
PROCEDURE: CT CERVICAL SPINE WO CON INDICATIONS: fell, hit head TECHNIQUE: Noncontrast 3 mm thick sections acquired from the skull base to the T4 level. Sagittal and coronal reformats were then constructed. For radiation dose reduction, the following was used: automated exposure control, adjustment of mA and/or kV according to patient size. COMPARISON: None. FINDINGS: Image quality: Excellent. Bones: No fractures or dislocations. Visualized superior ribs are intact. Degenerative changes are present within the mid and lower cervical spine including intervertebral disc space narrowing and osteophytosis. There is loss of the expected cervical lordosis and kyphosis centered at C6. Soft tissues: Prevertebral soft tissues are normal in thickness. No paravertebral hematomas. No apical pneumothoraces. 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 IMPRESSION: 1. No acute cervical spine injury. 2. Moderate degenerative change. Dictated by: Hien Davis M.D. on 03/11/2022 at 12:47 Approved by: Hien Davis M.D. on 03/11/2022 at 12:51
--- NOTE | 2022-03-11 14:43 | DI.RAD.S_ITS ---
PROCEDURE: XR CHEST 1V INDICATIONS: fall TECHNIQUE: One view of the chest was acquired. COMPARISON: [facility], , CHEST FOR PICC PLACEMENT, 07/12/2014, 12:03. FINDINGS: Surgical changes and devices: None. Lungs and pleura: Lungs are clear. No pleural effusions or pneumothorax. Mediastinum: Mediastinal contours appear normal. Heart size is normal. Bones and chest wall: No suspicious bony lesions. Overlying soft tissues appear unremarkable. IMPRESSION: Relatively light film technique, no trauma found. Dictated by: Cesar Dasilva M.D. on 03/11/2022 at 15:22 Approved by: Cesar Dasilva M.D. on 03/11/2022 at 15:22
--- NOTE | 2022-03-11 14:43 | DI.RAD.S_ITS ---
PROCEDURE: XR PELVIS 1-2V INDICATIONS: fall TECHNIQUE: Single frontal view of the pelvis acquired. COMPARISON: [facility], , PELVIS W UNILATERAL HIP RIGHT, 12/30/2014, 17:01. [facility], , PELVIS 1 OR 2 VIEWS, 12/30/2014, 14:57. FINDINGS: Bones: No fractures or dislocations. No suspicious bony lesions. Prior right total hip arthroplasty Soft tissues: Visualized bowel gas pattern is normal. No suspicious soft tissue calcifications. IMPRESSION: No acute trauma found. Prior right total hip arthroplasty, mild progression of left hip degenerative osteoarthritic change with reference to the comparison similar plain film evaluation from 2014. Dictated by: Cesar Dasilva M.D. on 03/11/2022 at 15:22 Approved by: Cesar Dasilva M.D. on 03/11/2022 at 15:24
[2022-03-11 15:05] LABS: Add Manual Diff / Slide Review NO; Basophils Absolute Auto 100 /uL (0-100); Basophils Percent Auto 0.7 % (0-2); Eosinophils Absolute Auto 0 /uL (0-450); Eosinophils Percent Auto 0.3 % (2-4); Hematocrit 34.1 % (41-53); Hemoglobin 11.4 g/dL (13.5-17.5); Lymphocytes Absolute Auto 1100 /uL (1100-4500); Lymphocytes Percent Auto 13.4 % (25-40); Mean Corpuscular HGB Conc 33.3 % (30-36); Mean Corpuscular Hemoglobin 30.5 PG (26-34); Mean Corpuscular Volume 91.6 fL (80-100); Monocytes Absolute Auto 500 /uL (0-900); Neutrophils Absolute Auto 6400 /uL (1500-7000); Neutrophils Percent Auto 79.6 % (50-75); Platelet Count 112 X10^3/uL (150-400); Red Blood Cell Count 3.73 X10^6/uL (4.5-5.9); Red Cell Distribution Width 13.6 % (11.6-14.8); White Blood Cell Count 8.1 X10^3/uL (4.5-11.0)
--- NOTE | 2022-03-11 15:06 | ED.FALL ---
HPI - Fall General Chief Complaint: Trauma Stated Complaint: Tripped last night, GLF, nausea, hit his head Time Seen by Provider: 03/11/22 12:17 Source: patient Mode of arrival: Wheelchair History of Present Illness HPI Narrative: Patient is a 71-year-old male history of Parkinson's disease presents after a ground level fall last night. States that he tripped over his feet and fell landing on his left side. He actually has quite a large contusion on his left hip but he also hit his head and had a brief loss of conscious. He was noted to be quite diaphoretic afterwards. He was mildly confused. He was able to get up and go home but came here and wanted to be checked out today. He has no chest pain or palpitations. No fever chills nausea or vomiting. He is on aspirin. He has been ambulatory. Related Data Home Medications Medication Instructions Recorded Confirmed carbidopa 25 mg-levodopa 100 mg 1 tab PO TID 10/24/18 12/27/21 tablet aspirin 81 mg tablet,delayed 81 mg PO DAILY 06/10/19 12/27/21 release ropinirole 0.5 mg tablet 1 mg PO TID 05/21/20 12/27/21 Previous Rx's Medication Instructions Recorded sertraline 50 mg tablet 50 mg PO QDAY #90 tabs 12/15/20 bacitracin 500 unit/gram topical 1 applic topical DAILY #30 grams 04/02/21 ointment docusate sodium 100 mg capsule 100 mg PO BID PRN Constipation 04/02/21 from narcotic pain meds #30 caps oxycodone 5 mg tablet 5 mg PO Q4-6H PRN Pain, Moderate 04/02/21 (4-6) #20 tabs sildenafil 100 mg tablet 50 - 100 mg PO DAILY PRN sexual 02/01/22 activity #10 tabs lisinopril 40 mg tablet 40 mg PO DAILY #90 tabs 03/03/22 Allergies Allergy/AdvReac Type Severity Reaction Status Date / Time cephalexin Allergy Mild rash, no Verified 12/27/21 16:26 reaction to IV cefazolin in 2014 valacyclovir Allergy Mild rash Verified 12/27/21 16:26 Review of Systems Review of Systems Narrative: GENERAL: Denies chills, fatigue, malaise, fever, sweats, travel HEENT: Denies sinus pain, ear pain, sore throat, difficulty swallowing, neck pain RESPIRATORY: Denies dyspnea, cough, wheezing, hemoptysis, sputum. CARDIOVASCULAR: Denies chest pain, palpitations, orthopnea, edema GASTROINTESTINAL: Denies nausea, vomiting, abdominal pain, diarrhea, constipation, melena. : Denies dysuria, frequency, incontinence, hematuria, urinary retention, flank pain. MUSCULOSKELETAL: See HPI SKIN: No rash, no erythema, no pruritus NEUROLOGIC: See HPI PSYCHIATRIC: No concerning psychosocial issues. 12 point review of systems is negative except for those stated above and HPI Patient History Medical History Anxiety (01/02/12) Arthritis BPH w urinary obs/LUTS Essential hypertension (09/25/15) Essential tremor (03/21/14) Hematuria Neurological disease Osteoarthritis of left knee Parkinsons disease Restless leg syndrome Sleep apnea with use of continuous positive airway pressure (CPAP) Thrombocytopenia (02/01/16) Surgical History History of hip replacement History of knee replacement Family History Father Cancer BPH (benign prostatic hyperplasia) Mother Hypertension Social History marital status: number of children: 4 household members: spouse occupational status: previously employed Smoking Status: Never smoker alcohol intake: current caffeine: Yes Smoking Status: Never smoker alcohol intake frequency: a few times a week Substance Use Type: does not use Exam Initial Vital Signs Initial Vital Signs: Vital Signs Temperature 97.0 F L 03/11/22 12:02 Pulse Rate 68 03/11/22 12:02 Respiratory Rate 18 03/11/22 12:02 Blood Pressure 109/51 L 03/11/22 12:02 Pulse Oximetry 97 03/11/22 12:02 Oxygen Delivery Method 03/11/22 12:02 GENERAL: Alert pleasant 71-year-old male no acute distress HEENT: Head atraumatic,EOMI, pupils reactive, face symmetric, moist mucous membranes CARDIOVASCULAR: Regular rate and rhythm without murmurs, rubs or gallops. RESPIRATORY: Breath sounds equal bilaterally, no wheezes rales or rhonchi. ABDOMEN: Soft, nontender. Normoactive bowel sounds all 4 quadrants. No guarding or rebound. EXTREMITIES: Normal range of motion, no clubbing or edema. Neurovascularly intact NEUROLOGICAL: Alert and oriented x4.Normal gait and speech. Cranial nerves II through XII grossly intact. Good [id number]-[id number], good [id number], strength equal bilaterally, no dysarthria or aphasia, sensation in tact to soft touch bilaterally, no visual changes, no facial droop SKIN: Significant swelling and large contusion over left buttock. Course Orders Ordered: ED Orders 03/11/22 12:05 CT head/brain wo con Stat 03/11/22 12:06 CT cervical spine wo con Stat 03/11/22 14:43 Chest [XR chest 1V] Stat XR pelvis 1-2V Stat 03/11/22 14:52 CBC Auto Diff [Complete Blood Count AUTO DIFF] Stat CMP [Comprehensive Metabolic Panel] Stat COVID19 -Nasal RAPID/Pre-Proc Stat Lactate (Lactic Acid) Stat Procalcitonin Stat Vital Signs Vital signs: Vital Signs - 8 hr 03/11/22 12:02 03/11/22 15:42 Temperature 97.0 F L Pulse Rate 68 60 Respiratory Rate 18 16 Blood Pressure 109/51 L 153/85 H Pulse Oximetry 97 99 Oxygen Delivery Method Room Air Room Air MDM - Fall Lab Data Result diagrams: 03/11/22 14:52 03/11/22 14:52 Labs: Lab Results 03/11/22 03/11/22 03/11/22 Range/Units 14:52 14:52 14:52 WBC 8.1 (4.5-11.0) X10^3/uL RBC 3.73 L (4.5-5.9) X10^6/uL Hgb 11.4 L (13.5-17.5) g/dL Hct 34.1 L (41-53) % MCV 91.6 (80-100) fL MCH 30.5 (26-34) PG MCHC 33.3 (30-36) % RDW 13.6 (11.6-14.8) % Plt Count 112 L (150-400) X10^3/uL Neut % (Auto) 79.6 H (50-75) % Lymph % (Auto) 13.4 L (25-40) % Letcher % (Auto) 6.0 (3-14) % Eos % (Auto) 0.3 L (2-4) % Baso % (Auto) 0.7 (0-2) % Neut # (Auto) 6400 (5238-1427) /uL Lymph # (Auto) 1100 (1039-1619) /uL Letcher # (Auto) 500 (0-900) /uL Eos # (Auto) 0 (0-450) /uL Baso # (Auto) 100 (0-100) /uL Sodium 139 (137-145) mmol/L Potassium 4.9 (3.4-5.1) mmol/L Chloride 103 (98-107) mmol/L Carbon Dioxide 27 (22-32) mmol/L BUN 30 H (9-20) mg/dL Creatinine 1.19 (0.66-1.25) mg/dL Estimated GFR > 60 (>60) mL/min BUN/Creatinine Ratio 25.2 H (6-22) Glucose 108 (80-110) mg/dL Lactate 0.9 (0.7-2.1) mmol/L Calcium 9.0 (8.4-10.2) mg/dL Total Bilirubin 0.7 (0.2-1.3) mg/dL AST 19 (17-59) IU/L ALT 7 (<50) IU/L Alkaline Phosphatase 52 (38-126) U/L Total Protein 6.7 (6.3-8.2) g/dL Albumin 3.8 (3.5-5.0) g/dL Globulin 2.9 (1.7-4.1) g/dL Albumin/Globulin Ratio 1.3 (1.0-2.8) Procalcitonin 0.06 (<0.5) ng/mL SARS-CoV-2 (PCR) (Negative) 03/11/22 Range/Units 14:52 WBC (4.5-11.0) X10^3/uL RBC (4.5-5.9) X10^6/uL Hgb (13.5-17.5) g/dL Hct (41-53) % MCV (80-100) fL MCH (26-34) PG MCHC (30-36) % RDW (11.6-14.8) % Plt Count (150-400) X10^3/uL Neut % (Auto) (50-75) % Lymph % (Auto) (25-40) % Letcher % (Auto) (3-14) % Eos % (Auto) (2-4) % Baso % (Auto) (0-2) % Neut # (Auto) (0429-2232) /uL Lymph # (Auto) (2888-8816) /uL Letcher # (Auto) (0-900) /uL Eos # (Auto) (0-450) /uL Baso # (Auto) (0-100) /uL Sodium (137-145) mmol/L Potassium (3.4-5.1) mmol/L Chloride (98-107) mmol/L Carbon Dioxide (22-32) mmol/L BUN (9-20) mg/dL Creatinine (0.66-1.25) mg/dL Estimated GFR (>60) mL/min BUN/Creatinine Ratio (6-22) Glucose (80-110) mg/dL Lactate (0.7-2.1) mmol/L Calcium (8.4-10.2) mg/dL Total Bilirubin (0.2-1.3) mg/dL AST (17-59) IU/L ALT (<50) IU/L Alkaline Phosphatase (38-126) U/L Total Protein (6.3-8.2) g/dL Albumin (3.5-5.0) g/dL Globulin (1.7-4.1) g/dL Albumin/Globulin Ratio (1.0-2.8) Procalcitonin (<0.5) ng/mL SARS-CoV-2 (PCR) Negative (Negative) Imaging Data CT scan - head: Radiologist's Impression: [address] [address] [address] Scan Report Signed Patient: Robert Santos MR#: [id number] : 1950 Acct:[id number] Age/Sex: 71 / M Date of Service: 03/11/22 Loc: ED Accession Number: [id number] ?? Procedure: CT head/brain wo con Ordering Provider: Jessie Pastor D.O. PROCEDURE:? CT HEAD/BRAIN WO CON ? INDICATIONS:? hit head, lightheaded ? TECHNIQUE:? Noncontrast 4.5 mm thick angled axial sections acquired from the foramen magnum to the vertex, with coronal and sagittal reformats.? For radiation dose reduction, the following was used:? automated exposure control, adjustment of mA and/or kV according to patient size.? ? COMPARISON:? None. ? FINDINGS:? Image quality:? Excellent.? ? CSF spaces:? Basal cisterns are patent.? No extra-axial fluid collections.? The ventricles are symmetric in size and shape.? ? Brain:? No intracranial bleeds or masses.? There is cerebral volume loss for age, with resultant ventricular and sulcal prominence.? There are periventricular and deep white matter chronic small vessel ischemic changes.? There is intracranial internal carotid artery atherosclerosis.? ? Skull and face:? Calvarium and visualized facial bones appear intact, without suspicious lesions.? ? Sinuses:? Visualized sinuses and mastoids are clear.? ? IMPRESSION:? ? 1. No acute intracranial findings. ? 2. Mild findings likely associated with chronic microvascular ischemia.? ? ? Dictated by: Hien Davis M.D. on 03/11/2022 at 12:45 ? ? Approved by: Hien Davis M.D. on 03/11/2022 at 12:46 ? CT - cervical spine: Radiologist's Impression: CT Scan Report Signed Patient: Robert Santos MR#: [id number] : 1950 Acct:[id number] Age/Sex: 71 / M Date of Service: 03/11/22 Loc: ED Accession Number: [id number] ?? Procedure: CT cervical spine wo con Ordering Provider: Jessie Pastor D.O. PROCEDURE:? CT CERVICAL SPINE WO CON ? INDICATIONS:? fell, hit head ? TECHNIQUE:? Noncontrast 3 mm thick sections acquired from the skull base to the T4 level.? Sagittal and coronal reformats were then constructed.? For radiation dose reduction, the following was used:? automated exposure control, adjustment of mA and/or kV according to patient size.? ? COMPARISON:? None. ? FINDINGS:? Image quality:? Excellent.? ? Bones:? No fractures or dislocations.? Visualized superior ribs are intact.? Degenerative changes are present within the mid and lower cervical spine including intervertebral disc space narrowing and osteophytosis.? There is loss of the expected cervical lordosis and kyphosis centered at C6. ? Soft tissues:? Prevertebral soft tissues are normal in thickness.? No paravertebral hematomas.? No apical pneumothoraces.? 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 ? ? IMPRESSION:? ? 1. No acute cervical spine injury. ? 2. Moderate degenerative change.? Dictated by: Hien Davis M.D. on 03/11/2022 at 12:47 ? ? Chest x-ray: Radiologist's Impression: Signed Patient: Robert Santos MR#: [id number] : 1950 Acct:[id number] Age/Sex: 71 / M Date of Service: 03/11/22 Loc: ED Accession Number: [id number] ?? Procedure: XR chest 1V Ordering Provider: Jessie Pastor D.O. PROCEDURE:? XR CHEST 1V ? INDICATIONS:? fall ? TECHNIQUE:? One view of the chest was acquired.? ? COMPARISON:? [facility], CHEST FOR PICC PLACEMENT, 07/12/2014, 12:03. ? FINDINGS:? ? Surgical changes and devices:? None.? ? Lungs and pleura:? Lungs are clear.? No pleural effusions or pneumothorax.? ? Mediastinum:? Mediastinal contours appear normal.? Heart size is normal.? ? Bones and chest wall:? No suspicious bony lesions.? Overlying soft tissues appear unremarkable.? ? IMPRESSION:? Relatively light film technique, no trauma found. ? ? Dictated by: Cesar Dasilva M.D. on 03/11/2022 at 15:22 ? ? Xray pelvis: Radiologist's Impression: Signed Patient: Robert Santos MR#: [id number] : 1950 Acct:[id number] Age/Sex: 71 / M Date of Service: 03/11/22 Loc: ED Accession Number: [id number] ?? Procedure: XR pelvis 1-2V Ordering Provider: Jessie Pastor D.O. PROCEDURE:? XR PELVIS 1-2V ? INDICATIONS:? fall ? TECHNIQUE:? Single frontal view of the pelvis acquired.? ? COMPARISON:? [facility], PELVIS W UNILATERAL HIP RIGHT, 12/30/2014, 17:01.? [facility], , PELVIS 1 OR 2 VIEWS, 12/30/2014, 14:57. ? FINDINGS:? ? Bones:? No fractures or dislocations.? No suspicious bony lesions.? Prior right total hip arthroplasty ? Soft tissues:? Visualized bowel gas pattern is normal.? No suspicious soft tissue calcifications.? ? IMPRESSION:? No acute trauma found.? Prior right total hip arthroplasty, mild progression of left hip degenerative osteoarthritic change with reference to the comparison similar plain film evaluation from 2015. ? ? ? Dictated by: Cesar Dasilva M.D. on 03/11/2022 at 15:22 ? ? [facility] Narrative Medical decision making narrative: Patient fell last night the sounds of was a mechanical fall. He does have a very large contusion over left buttock. Blood pressures are stable. His hemoglobin did drop about 2 point but is is definitely not in range for any sort of transfusion. It is likely stopped. Patient is able to ambulate without any difficulty. Imaging is negative. Recommended ice and pain medications as needed. Concerning symptoms for severe concussion no nausea vomiting or headache. He certainly has no focal deficits. Sounds as though it was mechanical fall and not a syncopal episode although he was worked up. Discharge Plan Departure Patient Disposition: Home Clinical Impression: Closed head injury, Contusion of hip, right Instructions: Concussion Activity Restrictions/Additional Instructions: *You have been diagnosed with concussion left hip contusion *What to do: Your hip will take some time for the swelling to go down, ice 20-30 minutes at a time. *Continue to take medications as directed Tylenol as needed for pain *Follow up with your primary care provider in 2-3 days or call [phone] *Return to ER if you should have increasing pain swelling persistent vomiting numbness tingling or weakness or any new, worsening or concerning symptoms Prescriptions: No Action ropinirole 0.5 mg tablet 1 mg PO TID sildenafil 100 mg tablet 50 - 100 mg PO DAILY PRN (Reason: sexual activity) Qty: 10 4RF Rx Instructions: administer 30 minutes to 4 hours before activity lisinopril 40 mg tablet 40 mg PO DAILY Qty: 90 1RF carbidopa-levodopa 25-100 mg tablet 1 tab PO TID aspirin 81 mg tablet,delayed release (DR/EC) 81 mg PO DAILY sertraline 50 mg tablet 50 mg PO QDAY Qty: 90 3RF docusate sodium 100 mg Capsule 100 mg PO BID PRN (Reason: Constipation from narcotic pain meds) Qty: 30 0RF oxycodone 5 mg Tablet 5 mg PO Q4-6H PRN (Reason: Pain, Moderate (4-6)) Qty: 20 0RF bacitracin 500 unit/gram ointment 1 applic topical DAILY Qty: 30 0RF Referrals: Derek Ram MD [Primary Care Provider] - Visit Report Forms: Patient Portal/API
[2022-03-11 15:19] LABS: Alanine Aminotransferase 7 IU/L (<50); Albumin 3.8 g/dL (3.5-5.0); Albumin Globulin Ratio 1.3 (1.0-2.8); Alkaline Phosphatase 52 U/L (38-126); Aspartate Aminotransferase 19 IU/L (17-59); BUN Creatinine Ratio 25.2 (6-22); Bilirubin Total 0.7 mg/dL (0.2-1.3); Blood Urea Nitrogen 30 mg/dL (9-20); COVID19 -Nasal RAPID Negative (Negative); Carbon Dioxide 27 mmol/L (22-32); Chloride 103 mmol/L (98-107); Estimated Glomerular Filt Rate > 60 mL/min (>60); Globulin 2.9 g/dL (1.7-4.1); Glucose 108 mg/dL (80-110); HEMOLYSIS < 15 (0-50); Lactate (Lactic Acid) 0.9 mmol/L (0.7-2.1); Potassium 4.9 mmol/L (3.4-5.1); Sodium 139 mmol/L (137-145); Total Protein 6.7 g/dL (6.3-8.2)
[2022-03-11 15:35] LABS: Procalcitonin 0.06 ng/mL (<0.5)
[2022-03-11 15:42] VITALS: BP 153/85; PULSE 60; RESP 16; O2SAT 99
== END 2022-03-11 16:39 | disposition home or self-care (01) ==
PROVIDERS: Emergency Provider Emergency Medicine; Family Provider Internal Medicine; PCP Internal Medicine; Referring Provider Internal Medicine
DX: S09.90XA Unspecified injury of head, initial encounter (principal); S70.01XA Contusion of right hip, initial encounter; G20 Parkinson's disease; W18.30XA Fall on same level, unspecified, initial encounter; Z20.822 Contact with and (suspected) exposure to COVID-19
CPT/HCPCS: 36415; 70450; 71045; 72125; 72170; 80053; 83605; 84145; 85025; 87635; 99284; C9803

== ENCOUNTER → 2022-03-29 10:54 | Outpatient (CLI) | payer MEDICARE, OTHER, SELFPAY ==
[2021-04-01 23:29] VITALS: BMI 31.2
[2022-03-29 11:46] LABS: Add Manual Diff / Slide Review NO; Basophils Absolute Auto 0 /uL (0-100); Basophils Percent Auto 0.4 % (0-2); Eosinophils Absolute Auto 100 /uL (0-450); Eosinophils Percent Auto 1.6 % (2-4); Hematocrit 35.9 % (41-53); Lymphocytes Absolute Auto 1100 /uL (1100-4500); Lymphocytes Percent Auto 17.5 % (25-40); Mean Corpuscular HGB Conc 33.5 % (30-36); Mean Corpuscular Hemoglobin 30.9 PG (26-34); Mean Corpuscular Volume 92.1 fL (80-100); Monocytes Absolute Auto 400 /uL (0-900); Monocytes Percent Auto 6.3 % (3-14); Neutrophils Absolute Auto 4600 /uL (1500-7000); Neutrophils Percent Auto 74.2 % (50-75); Platelet Count 165 X10^3/uL (150-400); Red Cell Distribution Width 14.6 % (11.6-14.8); White Blood Cell Count 6.2 X10^3/uL (4.5-11.0)
[2022-03-29 12:32] LABS: Prostate Specific Antigen Scrn 0.819 ng/mL (0.1-4.0)
== END ==
PROVIDERS: Family Provider Internal Medicine; PCP Internal Medicine; Referring Provider Internal Medicine; Visit Provider Internal Medicine
DX: D64.9 Anemia, unspecified (principal); Z12.5 Encounter for screening for malignant neoplasm of prostate
CPT/HCPCS: 36415; 85025; G0103

== ENCOUNTER → 2022-06-14 12:22 | Outpatient (CLI) | payer MEDICARE, OTHER, SELFPAY ==
[2021-04-01 23:29] VITALS: BMI 31.2
[2022-06-14 13:30] LABS: Add Manual Diff / Slide Review NO; Basophils Absolute Auto 0 /uL (0-100); Basophils Percent Auto 0.5 % (0-2); Eosinophils Absolute Auto 100 /uL (0-450); Eosinophils Percent Auto 1.5 % (2-4); Hemoglobin 13.8 g/dL (13.5-17.5); Lymphocytes Absolute Auto 1500 /uL (1100-4500); Lymphocytes Percent Auto 22.9 % (25-40); Mean Corpuscular HGB Conc 33.5 % (30-36); Mean Corpuscular Hemoglobin 30.1 PG (26-34); Mean Corpuscular Volume 89.6 fL (80-100); Monocytes Absolute Auto 400 /uL (0-900); Monocytes Percent Auto 6.5 % (3-14); Neutrophils Absolute Auto 4400 /uL (1500-7000); Neutrophils Percent Auto 68.6 % (50-75); Platelet Count 116 X10^3/uL (150-400); Red Blood Cell Count 4.58 X10^6/uL (4.5-5.9); Red Cell Distribution Width 13.2 % (11.6-14.8); White Blood Cell Count 6.4 X10^3/uL (4.5-11.0)
[2022-06-14 13:52] LABS: Erythrocyte Sedimentation Rate 9 MM/HR (0-15)
[2022-06-14 14:01] LABS: HEMOLYSIS < 15 (0-50); Iron 93 ug/dL (49-181)
[2022-06-14 14:02] LABS: Alanine Aminotransferase 5 IU/L (<50); Albumin 4.2 g/dL (3.5-5.0); Albumin Globulin Ratio 1.3 (1.0-2.8); Alkaline Phosphatase 53 U/L (38-126); Aspartate Aminotransferase 22 IU/L (17-59); BUN Creatinine Ratio 19.4 (6-22); Bilirubin Total 0.8 mg/dL (0.2-1.3); Blood Urea Nitrogen 19 mg/dL (9-20); C-Reactive Protein Quant < 0.5 mg/dL (<1.0); Calcium 9.5 mg/dL (8.4-10.2); Carbon Dioxide 30 mmol/L (22-32); Chloride 101 mmol/L (98-107); Estimated Glomerular Filt Rate > 60 mL/min (>60); Globulin 3.3 g/dL (1.7-4.1); Glucose 92 mg/dL (80-110); HEMOLYSIS < 15 (0-50); Lipase 17 U/L (23-300); Potassium 4.4 mmol/L (3.4-5.1); Sodium 141 mmol/L (137-145); Total Protein 7.5 g/dL (6.3-8.2)
[2022-06-14 14:11] LABS: Transferrin 221 mg/dL (206-381)
[2022-06-14 14:16] LABS: Free T4, Direct Thyroxine 1.04 ng/dL (0.78-2.19)
[2022-06-14 14:30] LABS: Thyroid Stimulating Hormone 2.12 uIU/mL (0.47-4.68)
[2022-06-14 15:02] LABS: Folate 6.5 ng/mL (2.76-20.0); Vitamin B12 221 pg/mL (239-931)
[2022-06-15 14:56] LABS: Percent Iron Saturation 30 % (20-50); Total Iron Binding Capacity 309 ug/dL (261-462)
== END ==
PROVIDERS: Family Provider Internal Medicine; PCP Internal Medicine; Referring Provider Internal Medicine; Visit Provider Internal Medicine
DX: D64.9 Anemia, unspecified (principal); D69.6 Thrombocytopenia, unspecified; G20 Parkinson's disease; I10 Essential (primary) hypertension; R63.4 Abnormal weight loss
CPT/HCPCS: 36415; 80053; 82607; 82746; 83540; 83550; 83690; 84439; 84443; 85025; 85651; 86140

== ENCOUNTER → 2023-01-16 14:38 | Outpatient (CLI) | payer MEDICARE, OTHER, SELFPAY ==
[2021-04-01 23:29] VITALS: BMI 31.2
[2023-01-16 15:03] LABS: Add Manual Diff / Slide Review NO; Basophils Absolute Auto 100 /uL (0-100); Basophils Percent Auto 0.9 % (0-2); Eosinophils Absolute Auto 100 /uL (0-450); Hemoglobin 13.2 g/dL (13.5-17.5); Lymphocytes Absolute Auto 1500 /uL (1100-4500); Lymphocytes Percent Auto 23.7 % (25-40); Mean Corpuscular HGB Conc 33.8 % (30-36); Mean Corpuscular Hemoglobin 30.4 PG (26-34); Mean Corpuscular Volume 89.9 fL (80-100); Monocytes Absolute Auto 400 /uL (0-900); Monocytes Percent Auto 6.5 % (3-14); Neutrophils Absolute Auto 4300 /uL (1500-7000); Neutrophils Percent Auto 66.9 % (50-75); Platelet Count 131 X10^3/uL (150-400); Red Blood Cell Count 4.33 X10^6/uL (4.5-5.9); Red Cell Distribution Width 14.3 % (11.6-14.8); White Blood Cell Count 6.5 X10^3/uL (4.5-11.0)
[2023-01-16 15:35] LABS: Erythrocyte Sedimentation Rate 9 MM/HR (0-15)
[2023-01-16 15:40] LABS: Alanine Aminotransferase 7 IU/L (<50); Albumin 4.4 g/dL (3.5-5.0); Albumin Globulin Ratio 1.6 (1.0-2.8); Alkaline Phosphatase 57 U/L (38-126); Aspartate Aminotransferase 23 IU/L (17-59); BUN Creatinine Ratio 22.5 (6-22); Bilirubin Total 0.7 mg/dL (0.2-1.3); Blood Urea Nitrogen 23 mg/dL (9-20); C-Reactive Protein Quant < 0.5 mg/dL (<1.0); Calcium 9.3 mg/dL (8.4-10.2); Carbon Dioxide 25 mmol/L (22-32); Chloride 105 mmol/L (98-107); Estimated Glomerular Filt Rate > 60 mL/min (>60); Globulin 2.7 g/dL (1.7-4.1); Glucose 92 mg/dL (80-110); HEMOLYSIS < 15 (0-50); Potassium 4.3 mmol/L (3.4-5.1); Sodium 139 mmol/L (137-145); Total Protein 7.1 g/dL (6.3-8.2)
[2023-01-16 15:49] LABS: Free T4, Direct Thyroxine 0.93 ng/dL (0.78-2.19)
[2023-01-16 16:03] LABS: Thyroid Stimulating Hormone 2.25 uIU/mL (0.47-4.68)
== END ==
PROVIDERS: Family Provider Internal Medicine; PCP Internal Medicine; Referring Provider Internal Medicine; Visit Provider Internal Medicine
DX: D69.6 Thrombocytopenia, unspecified (principal); E03.9 Hypothyroidism, unspecified; G20 Parkinson's disease; I10 Essential (primary) hypertension
CPT/HCPCS: 36415; 80053; 84439; 84443; 85025; 85651; 86140

== ENCOUNTER → 2024-07-15 10:01 | Outpatient (CLI) | payer MEDICARE, OTHER, SELFPAY ==
[2021-04-01 23:29] VITALS: BMI 31.2
[2024-07-15 11:08] LABS: Add Manual Diff / Slide Review NO; Basophils Absolute Auto 100 /uL (0-100); Basophils Percent Auto 1.7 % (0-2); Eosinophils Absolute Auto 100 /uL (0-450); Eosinophils Percent Auto 3.8 % (2-4); Hematocrit 40.2 % (41-53); Hemoglobin 13.5 g/dL (13.5-17.5); Lymphocytes Absolute Auto 1100 /uL (1100-4500); Lymphocytes Percent Auto 29.7 % (25-40); Mean Corpuscular HGB Conc 33.7 % (30-36); Mean Corpuscular Hemoglobin 30.1 PG (26-34); Mean Corpuscular Volume 89.2 fL (80-100); Monocytes Absolute Auto 300 /uL (0-900); Monocytes Percent Auto 9.4 % (3-14); Neutrophils Absolute Auto 2000 /uL (1500-7000); Neutrophils Percent Auto 55.4 % (50-75); Platelet Count 95 X10^3/uL (150-400); Red Cell Distribution Width 13.4 % (11.6-14.8); White Blood Cell Count 3.6 X10^3/uL (4.5-11.0)
[2024-07-15 11:18] LABS: Alanine Aminotransferase 16 IU/L (<50); Albumin 4.4 g/dL (3.5-5.0); Albumin Globulin Ratio 1.5 (1.0-2.8); Alkaline Phosphatase 59 U/L (38-126); Aspartate Aminotransferase 26 IU/L (17-59); BUN Creatinine Ratio 16.5 (6-22); Bilirubin Total 0.7 mg/dL (0.2-1.3); Blood Urea Nitrogen 17 mg/dL (9-20); Calcium 9.3 mg/dL (8.4-10.2); Carbon Dioxide 29 mmol/L (22-32); Chloride 103 mmol/L (98-107); Cholesterol 171 mg/dL (140-199); Estimated Glomerular Filt Rate > 60 mL/min (>60); Globulin 2.9 g/dL (1.7-4.1); Glucose 104 mg/dL (80-110); HDL Cholesterol 45 mg/dL (40-60); HEMOLYSIS < 15 (0-50); LDL Cholesterol Calculated 113 mg/dL (<100); Potassium 4.4 mmol/L (3.4-5.1); Sodium 140 mmol/L (137-145); Total Protein 7.3 g/dL (6.3-8.2); Triglycerides 63 mg/dL (35-150)
== END ==
LOC: LAB 10:02
PROVIDERS: Family Provider Internal Medicine; PCP Internal Medicine; Referring Provider Internal Medicine; Visit Provider Internal Medicine
DX: I10 Essential (primary) hypertension (principal); D69.6 Thrombocytopenia, unspecified; G20.A1 Parkinson's disease without dyskinesia, without mention of fluctuations
CPT/HCPCS: 36415; 80053; 80061; 85025

== ENCOUNTER → 2024-07-20 08:56 | Outpatient (CLI) | payer MEDICARE, OTHER, SELFPAY ==
[2021-04-01 23:29] VITALS: BMI 31.2
--- NOTE | 2024-07-20 08:57 | DI.RAD.S_ITS ---
PROCEDURE: XR CHEST 2V INDICATIONS: Cough, SOB TECHNIQUE: 2 views of the chest were acquired. COMPARISON: [facility], CR, XR CHEST 1V, 03/11/2022, 14:48. FINDINGS: Surgical changes and devices: None. Lungs and pleura: Lungs are clear. No pleural effusions or pneumothorax. Mediastinum: Mediastinal contours are normal. Heart size is normal. Bones and chest wall: No suspicious bony abnormalities. Soft tissues appear unremarkable. IMPRESSION: No acute cardiopulmonary abnormality is seen. Approved by: Stephen Snyder M.D. on 07/20/2024 at 8:37
== END ==
PROVIDERS: Family Provider Internal Medicine; PCP Internal Medicine; Referring Provider Physician Assistant Surgical; Visit Provider Physician Assistant Surgical
DX: R05.9 Cough, unspecified (principal)
CPT/HCPCS: 71046